=== PATIENT | female | born 1935 | race Caucasian/White ===

== ENCOUNTER 2017-03-25 10:40 | Inpatient (IN) ==
[2017-03-25] MEDS ORDERED: Dextrose Gel 15 GM PO PRN ×2 (11:29)
[2017-03-25] MEDS ORDERED: *HR* Dextrose 50 % in Water (Syg) 50 ML SYRINGE IVP PRN (11:29)
[2017-03-25] MEDS ORDERED: D5% in Water 1,000 ML IVC PRN (11:29)
[2017-03-25] MEDS: Insulin LISPRO 300 UNITS/3 ML VIAL SQ SCH ×3 (12:41→21:22)
[2017-03-25] MEDS: Cortisporin *EAR*Susp 10 ML BOTTLE BOTH EARS SCH ×3 (13:15→21:22)
[2017-03-25] MEDS: *HR* OxyCODONE/APAP 5/325 TABLET PO PRN ×2 (13:15→21:30)
[2017-03-25] MEDS: *HR* Metformin 500 MG TABLET PO SCH (17:11)
[2017-03-25] MEDS: *HR* Warfarin 2 MG TABLET PO SCH (17:12)
[2017-03-25] MEDS: *HR* Warfarin 3 MG TABLET PO SCH (17:12)
[2017-03-25] MEDS: Albuterol 2.5 MG/3 ML NEBULIZER IH SCH ×2 (19:05)
[2017-03-25] MEDS: Lisinopril 20 MG TABLET PO SCH (21:21)
[2017-03-26 06:39] LABS: Basophils % 0.7 %; Eosinophils # 0.2 K/mcL (0.0-0.6); Eosinophils % 4.2 %; Hematocrit 37.7 % (35.3-44.9); Hemoglobin 11.1 g/dL (11.5-15.4); Immature Granulocytes % 0.3 % (0-4); Lymphocytes # 0.7 K/mcL (0.6-4.6); Lymphocytes % 12.8 %; Mean Corpuscular HGB Conc 29.4 g/dL (31.6-35.5); Mean Corpuscular Hemoglobin 29.1 pg (28.0-33.3); Mean Corpuscular Volume 98.7 fL (83.0-100.0); Mean Platelet Volume 9.8 fL (9.4-12.4); Monocytes # 0.5 K/mcL (0.0-1.3); Monocytes % 8.9 %; Neutrophils # 4.2 K/mcL (1.6-8.9); Platelet Count 234 K/mcL (140-400); Red Blood Count 3.82 M/mcL (3.82-4.97); Red Cell Distribution Width 15.5 % (11.5-14.5); Segmented Neutrophils % 73.1 %
[2017-03-26 06:47] LABS: INR 1.5; Prothrombin Time 16.7 Seconds (9.4-12.1)
[2017-03-26 06:50] LABS: Activated Partial Thrombo Time 32.8 Seconds (26.0-36.0)
[2017-03-26 06:59] LABS: BUN/Creatinine Ratio 28 (6-26); Blood Urea Nitrogen 27 mg/dL (7-20); Calcium 9.4 mg/dL (8.6-10.8); Carbon Dioxide 39 mEq/L (19-29); Chloride 94 mEq/L (98-109); Glucose 127 mg/dL (70-99); Osmolality,Calculated 303 (280-300); Potassium 4.9 mEq/L (3.5-4.5); Sodium 143 mEq/L (136-145); eGFR For African Americans > 60 (> 60); eGFR For Non-African Americans 56 (> 60)
[2017-03-26] MEDS: Insulin LISPRO 300 UNITS/3 ML VIAL SQ SCH ×4 (07:28→20:29)
[2017-03-26] MEDS: (Febuxostat [Uloric] 40 MG) PO SCH (07:30)
[2017-03-26] MEDS: Bumetanide 1 MG TABLET PO SCH (08:00)
[2017-03-26] MEDS: Lisinopril 20 MG TABLET PO SCH ×2 (08:01→20:29)
[2017-03-26] MEDS: Magnesium Oxide 400 MG TABLET PO SCH (08:01)
[2017-03-26] MEDS: Diltiazem CD (24hr) 300 MG CAPSULE PO SCH (08:01)
[2017-03-26] MEDS: Metoprolol XL (24 HR) Succ 25 MG TAB.ER.24H PO SCH (08:01)
[2017-03-26] MEDS: *HR* Metformin 500 MG TABLET PO SCH ×2 (08:01→16:43)
[2017-03-26] MEDS: Cortisporin *EAR*Susp 10 ML BOTTLE BOTH EARS SCH ×4 (08:02→20:29)
[2017-03-26] MEDS: *HR* OxyCODONE/APAP 5/325 TABLET PO PRN ×2 (14:21→23:03)
[2017-03-26] MEDS: Albuterol 2.5 MG/3 ML NEBULIZER IH PRN (15:03)
[2017-03-26] MEDS: *HR* Warfarin 2 MG TABLET PO SCH (16:43)
[2017-03-26] MEDS: *HR* Warfarin 3 MG TABLET PO SCH (16:43)
[2017-03-27] MEDS: Insulin LISPRO 300 UNITS/3 ML VIAL SQ SCH ×4 (07:37→20:28)
[2017-03-27] MEDS: Albuterol 2.5 MG/3 ML NEBULIZER IH PRN ×2 (08:02→19:57)
[2017-03-27] MEDS: Metoprolol XL (24 HR) Succ 25 MG TAB.ER.24H PO SCH (08:03)
[2017-03-27] MEDS: Lisinopril 20 MG TABLET PO SCH ×2 (08:03→20:23)
[2017-03-27] MEDS: *HR* Metformin 500 MG TABLET PO SCH ×2 (08:03→16:55)
[2017-03-27] MEDS: Bumetanide 1 MG TABLET PO SCH (08:03)
[2017-03-27] MEDS: Magnesium Oxide 400 MG TABLET PO SCH (08:03)
[2017-03-27] MEDS: Diltiazem CD (24hr) 300 MG CAPSULE PO SCH (08:59)
[2017-03-27] MEDS: (Febuxostat [Uloric] 40 MG) PO SCH (09:27)
[2017-03-27] MEDS: Cortisporin *EAR*Susp 10 ML BOTTLE BOTH EARS SCH ×4 (09:53→20:22)
--- NOTE | 2017-03-27 11:26 | Internal Med Progress Note ---
Date of Encounter: 03/27/17 Time of Encounter: 11:15 - Assessment and plan (1) Congestive heart failure Current Visit: No Status: Acute Assessment and plan: March 27. Continue Zestril, Bumex, and Toprol. Qualifiers: Congestive heart failure type: unspecified congestive heart failure type Congestive heart failure chronicity: acute on chronic Qualified Code(s): I50.9 - Heart failure, unspecified (2) Hypertension Current Visit: No Status: Chronic Assessment and plan: March 27. Blood pressure shows significant fluctuation. Continue Zestril, Bumex, and Toprol Qualifiers: Hypertension type: essential hypertension Qualified Code(s): I10 - Essential (primary) hypertension (3) Edema Current Visit: No Status: Acute Assessment and plan: March 27. Continue Bumex. Recheck labs in a.m. Qualifiers: Edema type: unspecified Qualified Code(s): R60.9 - Edema, unspecified (4) Atrial fibrillation Current Visit: No Status: Chronic Assessment and plan: March 27. Continue Coumadin, diltiazem, and Toprol. Recheck labs in a.m. Qualifiers: Atrial fibrillation type: chronic Qualified Code(s): I48.2 - Chronic atrial fibrillation (5) Hypomagnesemia Current Visit: No Status: Acute Assessment and plan: March 27. Continue magnesium oxide. Recheck labs in a.m. - Subjective Interval history: March 27. She was hospitalized in [facility] acute care March 21 with dyspnea probably secondary to bronchiolitis with heart failure. She had clinical improvement and was discharged to swing bed for ongoing therapy. She has no new complaints today. - Constitutional Vitals: Temp Pulse Resp BP Pulse Ox 97.8 F 88 16 155/85 93 03/27/17 05:20 03/27/17 05:20 03/27/17 08:05 03/27/17 05:20 03/27/17 08:05 Exam: She is sitting in a chair at bedside working with a therapist. She appears in no acute distress. She has trace pitting edema of her lower legs and 1+ edema of the dorsum of the feet. I reviewed her medications and lab results. Internal Medicine: Result - Labs CBC & Chem 7: 03/26/17 05:54 03/26/17 05:54 - ABG Interpretation ABG results: PT/INR, D-dimer PT 16.7 Seconds (9.4-12.1) H 03/26/17 05:54 - VTE Documentation of Mechanical Device: Graduated compression elastic hosiery Consult Discharge Plan - Plan Referrals: Lionel Paula DO [Primary Care Provider] - 1 week
[2017-03-27] MEDS: *HR* OxyCODONE/APAP 5/325 TABLET PO PRN ×2 (16:07→22:30)
[2017-03-27] MEDS: *HR* Warfarin 2 MG TABLET PO SCH (16:55)
[2017-03-27] MEDS: *HR* Warfarin 3 MG TABLET PO SCH (16:56)
[2017-03-28] MEDS: *HR* OxyCODONE/APAP 5/325 TABLET PO PRN ×2 (05:06→20:12)
[2017-03-28 05:40] LABS: Basophils # 0.1 K/mcL (0.0-0.2); Basophils % 1.6 %; Eosinophils # 0.2 K/mcL (0.0-0.6); Hematocrit 35.5 % (35.3-44.9); Immature Granulocytes % 0.3 % (0-4); Lymphocytes # 0.7 K/mcL (0.6-4.6); Lymphocytes % 18.1 %; Mean Corpuscular Hemoglobin 29.4 pg (28.0-33.3); Mean Corpuscular Volume 94.9 fL (83.0-100.0); Mean Platelet Volume 9.5 fL (9.4-12.4); Monocytes # 0.3 K/mcL (0.0-1.3); Monocytes % 9.3 %; Neutrophils # 2.4 K/mcL (1.6-8.9); Platelet Count 219 K/mcL (140-400); Red Blood Count 3.74 M/mcL (3.82-4.97); Red Cell Distribution Width 14.9 % (11.5-14.5); Segmented Neutrophils % 64.7 %
[2017-03-28 05:42] LABS: INR 1.9; Prothrombin Time 21.1 Seconds (9.4-12.1)
[2017-03-28 05:58] LABS: BUN/Creatinine Ratio 27 (6-26); Blood Urea Nitrogen 20 mg/dL (7-20); Calcium 9.4 mg/dL (8.6-10.8); Carbon Dioxide 38 mEq/L (19-29); Chloride 93 mEq/L (98-109); Glucose 116 mg/dL (70-99); Magnesium 1.5 mg/dL (1.6-2.6); Osmolality,Calculated 300 (280-300); Potassium 4.2 mEq/L (3.5-4.5); Sodium 143 mEq/L (136-145); eGFR For African Americans > 60 (> 60); eGFR For Non-African Americans > 60 (> 60)
[2017-03-28] MEDS: Insulin LISPRO 300 UNITS/3 ML VIAL SQ SCH ×4 (07:34→23:15)
[2017-03-28] MEDS: Diltiazem CD (24hr) 300 MG CAPSULE PO SCH (09:22)
[2017-03-28] MEDS: Metoprolol XL (24 HR) Succ 25 MG TAB.ER.24H PO SCH (09:22)
[2017-03-28] MEDS: Lisinopril 20 MG TABLET PO SCH ×2 (09:22→20:10)
[2017-03-28] MEDS: *HR* Metformin 500 MG TABLET PO SCH ×2 (09:22→17:27)
[2017-03-28] MEDS: Bumetanide 1 MG TABLET PO SCH (09:23)
[2017-03-28] MEDS: Magnesium Oxide 400 MG TABLET PO SCH (09:23)
[2017-03-28] MEDS: Cortisporin *EAR*Susp 10 ML BOTTLE BOTH EARS SCH ×4 (09:25→21:00)
[2017-03-28] MEDS: (Febuxostat [Uloric] 40 MG) PO SCH (14:04)
[2017-03-28] MEDS: *HR* Warfarin 2 MG TABLET PO SCH (17:27)
[2017-03-28] MEDS: *HR* Warfarin 3 MG TABLET PO SCH (17:49)
[2017-03-29] MEDS: *HR* OxyCODONE/APAP 5/325 TABLET PO PRN (04:34)
[2017-03-29 06:50] VITALS: BP 126/67
[2017-03-29] MEDS: Insulin LISPRO 300 UNITS/3 ML VIAL SQ SCH (08:00)
[2017-03-29] MEDS: Diltiazem CD (24hr) 300 MG CAPSULE PO SCH (09:11)
[2017-03-29] MEDS: *HR* Metformin 500 MG TABLET PO SCH (09:11)
[2017-03-29] MEDS: Metoprolol XL (24 HR) Succ 25 MG TAB.ER.24H PO SCH (09:11)
[2017-03-29] MEDS: Magnesium Oxide 400 MG TABLET PO SCH (09:11)
[2017-03-29] MEDS: Lisinopril 20 MG TABLET PO SCH (09:11)
[2017-03-29] MEDS: Bumetanide 1 MG TABLET PO SCH (09:11)
[2017-03-29] MEDS: (Febuxostat [Uloric] 40 MG) PO SCH (09:13)
[2017-03-29] MEDS: Cortisporin *EAR*Susp 10 ML BOTTLE BOTH EARS SCH (09:13)
--- NOTE | 2017-03-29 10:52 | Discharge Summary ---
Date of Encounter: 03/29/17 Time of Encounter: 10:25 - Discharge Diagnosis (1) Congestive heart failure Priority: Primary Status: Acute Qualifiers: Congestive heart failure type: unspecified congestive heart failure type Congestive heart failure chronicity: acute on chronic Qualified Code(s): I50.9 - Heart failure, unspecified (2) Hypertension Priority: Secondary Status: Chronic Qualifiers: Hypertension type: essential hypertension Qualified Code(s): I10 - Essential (primary) hypertension (3) Edema Priority: Secondary Status: Acute Qualifiers: Edema type: unspecified Qualified Code(s): R60.9 - Edema, unspecified (4) Atrial fibrillation Priority: Secondary Status: Chronic Qualifiers: Atrial fibrillation type: chronic Qualified Code(s): I48.2 - Chronic atrial fibrillation (5) Hypomagnesemia Priority: Secondary Status: Acute - Discharge Medications Prescriptions: Bumetanide [Bumex] 2 mg PO DAILY #60 tablet Magnesium Oxide [Mag-Ox] 400 mg PO DAILY #10 tablet metFORMIN [Glucophage] 500 mg PO BIDWM #60 tablet Potassium Chloride 10 meq PO BID #60 tab.er.prt Home Medications: Albuterol Neb [Proventil Neb] 2.5 mg IH Q6HR 02/15/15 [History] Diltiazem CD (24hr) [Cardizem CD] 300 mg PO DAILY 02/15/15 [History] Lisinopril [Zestril] 20 mg PO BID 02/15/15 [History] Warfarin [Coumadin] 7 mg PO 1800 02/15/15 [History] Febuxostat [Uloric] 40 mg PO DAILY 10/03/16 [History] MetroNIDAZOLE [Metrocream] 45 gm TP DAILY #1 cream..g. 10/03/16 [Rx] Rahul/Poly/HC *EAR* SOLN [Cortisporin *EAR* SOLN] 4 drop BOTH EARS QID #1 solution 10/03/16 [Rx] OxyCODONE/APAP 5/325 [Percocet 5/325 MG] 1 each PO Q6HR PRN 10/03/16 [History] Metoprolol XL (24 HR) Succ [Toprol Xl] 12.5 mg PO DAILY tab.er.24h 03/25/17 [Rx ] Bumetanide [Bumex] 2 mg PO DAILY #60 tablet 03/29/17 [Rx] Magnesium Oxide [Mag-Ox] 400 mg PO DAILY #10 tablet 03/29/17 [Rx] Potassium Chloride 10 meq PO BID #60 tab.er.prt 03/29/17 [Rx] metFORMIN [Glucophage] 500 mg PO BIDWM #60 tablet 03/29/17 [Rx] Allergies/Adverse Reactions: 3 Allergy/AdvReac Type Severity Reaction Status Date / Time No Known Allergies Allergy Verified 03/21/17 14:20 Date of admission: 03/25/17 11:01 Primary care physician: Lionel Paula DO Consults: 03/25/17 11:21 Consult to Occupational Therapy [CONS] Routine Comment: Evaluate, Develop and Implement Plan of care Reason for Consult: Evaluate, Develop and Implement Plan of Care Consult to Physical Therapy [CONS] Routine Comment: Evaluate, Develop and Implement POC Reason for Consult: Evaluate, Develop and Implement Plan of care Consult to Look Out Tower Fire Watcher [CONS] Routine Reason for SW Consult: Discharge planning - Patient Status Disposition: Home Health Service Functional capacity at discharge: uses cane/walker Overall status at discharge: patient is progressing back to baseline - Discharge Instructions Follow Up With: Lionel Paula DO [Primary Care Provider] - 1 week - Diet and Activity Activity: as per physical therapy Diet: low salt diet Hospital course: Ms. Hess is a 82 year old female who was hospitalized in [facility] acute care March 21 with dyspnea probably secondary to bronchiolitis with heart failure. She had clinical improvement and was discharged to swing bed for ongoing therapy. She progressed satisfactorily in swing bed. She was continued on Bumex Toprol and Zestril and had good diuresis with decreased edema and her blood pressure remained stable. She continued Coumadin diltiazem and Toprol and her atrial fibrillation remained satisfactorily controlled. She was maintained on magnesium oxide for hypomagnesemia. This will continue for 10 days at discharge and her PCP can monitor her labs as needed. On Marchrrangementses were complete for her to be discharged home. She will follow with her PCP Dr. Paula within 1 week. - Time Spent with Patient Total time spent providing and/or coordinating discharge services: - Constitutional Vitals: Temp Pulse Resp BP Pulse Ox 98.3 F 88 17 126/67 93 03/29/17 06:39 03/29/17 06:39 03/29/17 06:39 03/29/17 06:39 03/29/17 06:39 - VTE Documentation of Mechanical Device: Graduated compression elastic hosiery
--- NOTE | 2017-03-29 11:01 | Physician Discharge Referral ---
Home Health/Hosp Referral Info Transfer to: Home Health Attending Provider: Lucio Provider in Charge Post Discharge: PCP (Nisa) - Diagnosis (1) Congestive heart failure Priority: Primary Status: Acute (2) Hypertension Priority: Secondary Status: Chronic (3) Edema Priority: Secondary Status: Acute (4) Atrial fibrillation Priority: Secondary Status: Chronic (5) Hypomagnesemia Priority: Secondary Status: Acute - Respiratory Orders Oxygen / L per min (2-4 L/m by nasal cannula as necessary to keep sat greater than 90%) Smoking Cessation: Smoking cessation has been advised. For more information, call the [place] Tobacco Quit Line at 7-944-XDSO-NOW. - Diet/Nutrition Diet/Nutrition Orders: No Added Salt (CARLO) - Activity Activity Orders: Walker - Services Needed Following services are medically necessary services: Nursing, Home Health Aide, Physical Therapy, Occupational Therapy - Transfer Medications Prescriptions: Bumetanide [Bumex] 2 mg PO DAILY #60 tablet Magnesium Oxide [Mag-Ox] 400 mg PO DAILY #10 tablet metFORMIN [Glucophage] 500 mg PO BIDWM #60 tablet Potassium Chloride 10 meq PO BID #60 tab.er.prt Home Medications: Albuterol Neb [Proventil Neb] 2.5 mg IH Q6HR 02/15/15 [History] Diltiazem CD (24hr) [Cardizem CD] 300 mg PO DAILY 02/15/15 [History] Lisinopril [Zestril] 20 mg PO BID 02/15/15 [History] Warfarin [Coumadin] 7 mg PO 1800 02/15/15 [History] Febuxostat [Uloric] 40 mg PO DAILY 10/03/16 [History] MetroNIDAZOLE [Metrocream] 45 gm TP DAILY #1 cream..g. 10/03/16 [Rx] Rahul/Poly/HC *EAR* SOLN [Cortisporin *EAR* SOLN] 4 drop BOTH EARS QID #1 solution 10/03/16 [Rx] OxyCODONE/APAP 5/325 [Percocet 5/325 MG] 1 each PO Q6HR PRN 10/03/16 [History] Metoprolol XL (24 HR) Succ [Toprol Xl] 12.5 mg PO DAILY tab.er.24h 03/25/17 [Rx ] Bumetanide [Bumex] 2 mg PO DAILY #60 tablet 03/29/17 [Rx] Magnesium Oxide [Mag-Ox] 400 mg PO DAILY #10 tablet 03/29/17 [Rx] Potassium Chloride 10 meq PO BID #60 tab.er.prt 03/29/17 [Rx] metFORMIN [Glucophage] 500 mg PO BIDWM #60 tablet 03/29/17 [Rx] Allergies/Adverse Reactions: 3 Allergy/AdvReac Type Severity Reaction Status Date / Time No Known Allergies Allergy Verified 03/21/17 14:20 Certification: Further, I certify that my clinical findings support that this patient is homebound (i.e. absences from home require considerable and taxing effort and are for medical reasons or mandaen services or infrequently or short duration when for other reasons) because: Homebound Reason: Leaving home requires considerable and taxing effort due to condition (Extreme difficulty walking secondary to obesity and heart failure) Attestation: My signature below is to certify that this patient is under my care and that I, or nurse practitioner, or a physician's mailing machine assistant working with me, has a face-to -face encounter with this patient.
== END 2017-03-29 11:24 | disposition home health service (06) | DRG 292 ==
LOC: INPPIK 11:01
PROVIDERS: ADMIT Internal Medicine; ATTEND Internal Medicine

== ENCOUNTER 2018-04-10 12:10 | Inpatient (IN) ==
--- NOTE | 2018-04-10 12:37 | Emergency Department Note ---
Disposition Clinical Impression: Acute exacerbation of chronic obstructive airways disease, Congestive heart failure Disposition: Admitted As Inpatient Condition: Fair Referrals: Antonette Rhodes CNP [Primary Care Provider] - Forms: ED Satisfaction Letter Time of Disposition: 17:47 SOB HPI - General Chief Complaint: ED Shortness of Breath/Dyspnea Stated Complaint: shortness of breath Time Seen by Provider: 04/10/18 12:11 Source: patient Mode of arrival: ambulatory Limitations: no limitations Nursing Notes Reviewed: Yes Vital Signs Reviewed: Yes - History of Present Illness 83-year-old female with a past which was recommended ice elevate to the point where she is not able only round she states though that she has not had her diuretic past lays she denies any blurred vision double vision loss vision. Patient states that she's had approximately a 10 pound weight gain over the past couple days she denies any diarrhea melena hematochezia since she's had increasing swelling and edema she denies any nausea any rashes lesions denies any fever chills joint aches all systems reviewed and are otherwise negative Pt Subjective Complaint: shortness of breath Onset (ago): day(s) Severity: moderate Consistency/Duration: constant, gradually worsening Improves with: nothing Worsens with: exertion Known history of: COPD, congestive heart failure Associated symptoms: Reports: cough, wheezing, sputum production, lower extremity pain. Denies: chest pain, pain with inspiration, fever, orthopnea, polyuria, polydipsia, parasthesias, palpitations, hemoptysis, diaphoresis, nausea/vomiting, syncope, abdominal pain, rash, sense of impending doom Treatment prior to arrival: oxygen Cough present: No Sputum production: No - Related Data Home Medications Medication Instructions Recorded Confirmed Albuterol Neb [Proventil Neb] 2.5 mg IH Q6HR 02/15/15 01/03/18 Diltiazem CD (24hr) [Cardizem CD] 300 mg PO DAILY 02/15/15 01/03/18 Lisinopril [Zestril] 20 mg PO BID 02/15/15 01/03/18 Febuxostat [Uloric] 40 mg PO DAILY 10/03/16 01/03/18 Loratadine [Allergy Relief] 10 mg PO DAILY 06/22/17 01/03/18 Tizanidine HCl [Zanaflex] 4 mg PO TID 06/22/17 01/03/18 Tramadol HCl [Ultram] 50 mg PO QID PRN 06/22/17 01/03/18 Apixaban [Eliquis] 5 mg PO BID 12/08/17 01/03/18 Bumetanide [Bumex] 1 mg PO DAILY 12/08/17 01/03/18 Previous Rx's Medication Instructions Recorded metFORMIN [Glucophage] 500 mg PO BIDWM #60 tablet 03/29/17 Allergies Allergy/AdvReac Type Severity Reaction Status Date / Time No Known Allergies Allergy Verified 01/03/18 15:30 All systems ED: reviewed and negative except as stated. Review of Systems: As Per HPI Constitutional: Denies: fever, chills Eyes: Denies: eye pain, eye discharge ENT ED: Denies: ear pain, throat pain Cardiovascular: Reports: dyspnea on exertion. Denies: chest pain, palpitations Respiratory: Reports: dyspnea, wheezes. Denies: cough Gastrointestinal: Denies: abdominal pain, nausea, vomiting Genitourinary: Denies: urgency, dysuria, frequency Musculoskeletal: Denies: back pain, neck pain Integumentary: Denies: rash, abrasion, lesions Neurological: Denies: headache Psychiatric: Denies: anxiety Endocrine: Denies: fatigue Past Medical History - Past Medical History Attestation: Yes The following information was validated with the patient. Source: patient, old records reviewed, nursing notes reviewed Medical history: Reports: arthritis, atrial fibrillation, CHF, COPD, diabetes, hypertension, other Surgical history: Reports: hysterectomy Psychiatric history: Reports: no psych history TAN ROOM SUPERVISOR history: Reports: no TAN ROOM SUPERVISOR history - Social History Smoking Status: Never smoker Smokeless Tobacco Status: No Alcohol use: Reports: none Drug use: Reports: none Physical Exam - General Limitations: no limitations General appearance: alert, in no apparent distress, anxious, obese - Head Head exam: atraumatic, normocephalic, normal inspection - Eye Eye exam: Present: normal appearance, PERRL, EOMI - ENT ENT exam: normal exam, normal oropharynx, mucous membranes moist, TM's normal bilaterally, normal external ear exam - Neck Neck exam: Present: normal inspection, full ROM, trachea midline - Chest Chest inspection: Present: normal inspection, symmetric chest wall rise - Respiratory Respiratory exam: Present: prolonged expiratory phase, other (Crackles) - Cardiovascular Cardiovascular exam: Present: irregular rhythm, normal heart sounds - Abdominal Exam Abdominal exam: Present: soft, Non-Tender, normal bowel sounds. Absent: mass, pulsatile mass - Extremities Exam Extremities exam: Present: normal inspection, full ROM, normal capillary refill, pedal edema. Absent: tenderness, joint swelling, calf tenderness - Expanded Lower Extremity Exam Foot/toe exam: Present: normal inspection Neurovascular/Tendon exam: Present: normal capillary refill, normal fine/light touch Gait: observed and normal - Back Exam Back exam: Present: normal inspection, full ROM. Absent: muscle spasm - Neurological Exam Neurological exam: Present: alert, oriented X3, CN II-XII intact - Psychiatric Psychiatric exam: Present: normal affect, normal mood - Skin Skin exam: Present: warm, dry, intact, normal color Course Course Narrative: A she was seen and examined laboratory data was done we will do PE study because of slight elevation of her d-dimer but this may be age-related and her overall health condition causing a false elevation in the d-dimer but after repeated IV access attempts they were unable to obtain in excess patient does not want to be stuck anymore patient though is resting comfortably she is received aerosol treatments and she is also received diuretics which are seem to be doing much better patient sats holding in the 90% I spoke with Dr. Valdes will admit her for observation transferred to [facility] Vital Signs Temperature 98.7 F 04/10/18 12:11 Pulse Rate 94 04/10/18 12:11 Respiratory Rate 20 04/10/18 12:11 Blood Pressure 149/87 04/10/18 12:11 O2 Sat by Pulse Oximetry 84 04/10/18 12:11 Temperature 98.7 F 04/10/18 12:11 Pulse Rate 80 04/10/18 17:46 Respiratory Rate 20 04/10/18 17:46 Blood Pressure 150/74 04/10/18 17:46 O2 Sat by Pulse Oximetry 87 04/10/18 17:46 Oxygen Delivery Oxygen Delivery Nasal Cannula Shortness of Breath/Dyspnea - Differential Diagnosis Likely: acute exacerbation of chronic obstructive airways disease, congestive heart failure, pneumonia - Medical Records Medical records reviewed: Yes I reviewed the patient's medical records. - Lab Data Lab results reviewed: Yes I reviewed the patient's lab results. Result diagrams: 04/10/18 12:30 04/10/18 12:30 Lab Results 04/10/18 04/10/18 04/10/18 Range/Units 12:30 12:30 12:30 WBC 6.0 (4.3-11.1) K/mcL RBC 4.01 (3.82-4.97) M/mcL Hgb 11.5 (11.5-15.4) g/dL Hct 38.7 (35.3-44.9) % MCV 96.5 (83.0-100.0) fL MCH 28.7 (28.0-33.3) pg MCHC 29.7 L (31.6-35.5) g/dL RDW 17.8 H (11.5-14.5) % Plt Count 219 (140-400) K/mcL MPV 9.8 (9.4-12.4) fL Immature Gran % 0.3 (0-4) % Seg Neutrophils % 76.8 % Lymphocytes % 12.9 % Monocytes % 6.2 % Eosinophils % 2.8 % Basophils % 1.0 % Neutrophils # 4.6 (1.6-8.9) K/mcL Lymphocytes # 0.8 (0.6-4.6) K/mcL Monocytes # 0.4 (0.0-1.3) K/mcL Eosinophils # 0.2 (0.0-0.6) K/mcL Basophils # 0.1 (0.0-0.2) K/mcL Nucleated RBCs/100 WBC 0.3 H (0) /100 WBC PT 13.6 H (9.4-12.1) Seconds INR 1.2 APTT 36.0 (26.0-36.0) Seconds D-Dimer 1465 H (0-500) ng/mLFEU Sample Site ABG pH (7.32-7.45) pH Units ABG pCO2 (35-45) mmHg ABG pO2 (85-104) mmHg ABG HCO3 (21-27) mEq/L ABG Total CO2 (20-26) mEq/L ABG O2 Saturation (95-98) % ABG Base Excess (-2 to 3) mEq/L Sergio Test O2 Delivery Device Inspired O2 (1-15=lpm mg26-918=%) Sodium 139 (136-145) mEq/L Potassium 4.4 (3.5-5.1) mEq/L Chloride 98 (98-107) mEq/L Carbon Dioxide 34 H (23-29) mEq/L BUN 25 H (8-23) mg/dL Creatinine 1.05 (0.60-1.20) mg/dL Est GFR ( Amer) > 60 (> 60) Est GFR (Non-Af Amer) 50 L (> 60) BUN/Creatinine Ratio 24 (6-26) Glucose 198 H (70-105) mg/dL Calculated Osmolality 298 (280-300) Calcium 8.9 (8.6-10.3) mg/dL Total Bilirubin 0.6 (0.3-1.0) mg/dL AST 14 (13-39) Units/L ALT 13 (7-52) Units/L Alkaline Phosphatase 66 (34-104) Units/L Troponin I (< 0.04) ng/mL B-Natriuretic Peptide (Less than 100) pg/mL Serum Total Protein 7.5 (6.4-8.9) g/dL Albumin 3.6 (3.5-5.7) g/dL Globulin 3.9 H (2.4-3.5) g/dL Albumin/Globulin Ratio 0.9 L (1.1-2.2) Urine Color (Yellow) Urine Clarity (Clear) Urine pH (5.0-8.0) pH Units Ur Specific Morse (1.010-1.025) Urine Protein (Neg-Trace) mg/dL Urine Glucose (UA) (Normal) mg/dL Urine Ketones (Negative) mg/dL Urine Blood (Negative) Urine Nitrite (Negative) Urine Bilirubin (Negative) Urine Urobilinogen (Normal) mg/dL Ur Leukocyte Esterase (Negative) Urine Microscopic RBC (0-3) per hpf Urine Microscopic WBC (0-3) per hpf Ur Squamous Epith Cells (None-Few) per lpf Urine Bacteria (None-Few) per hpf Ur Culture Indicated? (NO) 04/10/18 04/10/18 04/10/18 Range/Units 12:30 12:30 13:57 WBC (4.3-11.1) K/mcL RBC (3.82-4.97) M/mcL Hgb (11.5-15.4) g/dL Hct (35.3-44.9) % MCV (83.0-100.0) fL MCH (28.0-33.3) pg MCHC (31.6-35.5) g/dL RDW (11.5-14.5) % Plt Count (140-400) K/mcL MPV (9.4-12.4) fL Immature Gran % (0-4) % Seg Neutrophils % % Lymphocytes % % Monocytes % % Eosinophils % % Basophils % % Neutrophils # (1.6-8.9) K/mcL Lymphocytes # (0.6-4.6) K/mcL Monocytes # (0.0-1.3) K/mcL Eosinophils # (0.0-0.6) K/mcL Basophils # (0.0-0.2) K/mcL Nucleated RBCs/100 WBC (0) /100 WBC PT (9.4-12.1) Seconds INR APTT (26.0-36.0) Seconds D-Dimer (0-500) ng/mLFEU Sample Site ABG pH (7.32-7.45) pH Units ABG pCO2 (35-45) mmHg ABG pO2 (85-104) mmHg ABG HCO3 (21-27) mEq/L ABG Total CO2 (20-26) mEq/L ABG O2 Saturation (95-98) % ABG Base Excess (-2 to 3) mEq/L Sergio Test O2 Delivery Device Inspired O2 (1-15=lpm aq02-576=%) Sodium (136-145) mEq/L Potassium (3.5-5.1) mEq/L Chloride (98-107) mEq/L Carbon Dioxide (23-29) mEq/L BUN (8-23) mg/dL Creatinine (0.60-1.20) mg/dL Est GFR ( Amer) (> 60) Est GFR (Non-Af Amer) (> 60) BUN/Creatinine Ratio (6-26) Glucose (70-105) mg/dL Calculated Osmolality (280-300) Calcium (8.6-10.3) mg/dL Total Bilirubin (0.3-1.0) mg/dL AST (13-39) Units/L ALT (7-52) Units/L Alkaline Phosphatase (34-104) Units/L Troponin I < 0.03 (< 0.04) ng/mL B-Natriuretic Peptide 206 H (Less than 100) pg/mL Serum Total Protein (6.4-8.9) g/dL Albumin (3.5-5.7) g/dL Globulin (2.4-3.5) g/dL Albumin/Globulin Ratio (1.1-2.2) Urine Color Yellow (Yellow) Urine Clarity Clear (Clear) Urine pH 5.5 (5.0-8.0) pH Units Ur Specific Morse 1.015 (1.010-1.025) Urine Protein Trace (Neg-Trace) mg/dL Urine Glucose (UA) Normal (Normal) mg/dL Urine Ketones Negative (Negative) mg/dL Urine Blood Trace-intact H (Negative) Urine Nitrite Negative (Negative) Urine Bilirubin Negative (Negative) Urine Urobilinogen Normal (Normal) mg/dL Ur Leukocyte Esterase Negative (Negative) Urine Microscopic RBC 0-3 (0-3) per hpf Urine Microscopic WBC 0-3 (0-3) per hpf Ur Squamous Epith Cells Few (None-Few) per lpf Urine Bacteria Few (None-Few) per hpf Ur Culture Indicated? NO (NO) 04/10/18 Range/Units 16:19 WBC (4.3-11.1) K/mcL RBC (3.82-4.97) M/mcL Hgb (11.5-15.4) g/dL Hct (35.3-44.9) % MCV (83.0-100.0) fL MCH (28.0-33.3) pg MCHC (31.6-35.5) g/dL RDW (11.5-14.5) % Plt Count (140-400) K/mcL MPV (9.4-12.4) fL Immature Gran % (0-4) % Seg Neutrophils % % Lymphocytes % % Monocytes % % Eosinophils % % Basophils % % Neutrophils # (1.6-8.9) K/mcL Lymphocytes # (0.6-4.6) K/mcL Monocytes # (0.0-1.3) K/mcL Eosinophils # (0.0-0.6) K/mcL Basophils # (0.0-0.2) K/mcL Nucleated RBCs/100 WBC (0) /100 WBC PT (9.4-12.1) Seconds INR APTT (26.0-36.0) Seconds D-Dimer (0-500) ng/mLFEU Sample Site R Radial ABG pH 7.37 (7.32-7.45) pH Units ABG pCO2 64 H (35-45) mmHg ABG pO2 56 L (85-104) mmHg ABG HCO3 37 H (21-27) mEq/L ABG Total CO2 39 H (20-26) mEq/L ABG O2 Saturation 87 L (95-98) % ABG Base Excess 9 H (-2 to 3) mEq/L Sergio Test Positive O2 Delivery Device Oxy Mask Inspired O2 5.0 (1-15=lpm nu58-214=%) Sodium (136-145) mEq/L Potassium (3.5-5.1) mEq/L Chloride (98-107) mEq/L Carbon Dioxide (23-29) mEq/L BUN (8-23) mg/dL Creatinine (0.60-1.20) mg/dL Est GFR ( Amer) (> 60) Est GFR (Non-Af Amer) (> 60) BUN/Creatinine Ratio (6-26) Glucose (70-105) mg/dL Calculated Osmolality (280-300) Calcium (8.6-10.3) mg/dL Total Bilirubin (0.3-1.0) mg/dL AST (13-39) Units/L ALT (7-52) Units/L Alkaline Phosphatase (34-104) Units/L Troponin I (< 0.04) ng/mL B-Natriuretic Peptide (Less than 100) pg/mL Serum Total Protein (6.4-8.9) g/dL Albumin (3.5-5.7) g/dL Globulin (2.4-3.5) g/dL Albumin/Globulin Ratio (1.1-2.2) Urine Color (Yellow) Urine Clarity (Clear) Urine pH (5.0-8.0) pH Units Ur Specific Morse (1.010-1.025) Urine Protein (Neg-Trace) mg/dL Urine Glucose (UA) (Normal) mg/dL Urine Ketones (Negative) mg/dL Urine Blood (Negative) Urine Nitrite (Negative) Urine Bilirubin (Negative) Urine Urobilinogen (Normal) mg/dL Ur Leukocyte Esterase (Negative) Urine Microscopic RBC (0-3) per hpf Urine Microscopic WBC (0-3) per hpf Ur Squamous Epith Cells (None-Few) per lpf Urine Bacteria (None-Few) per hpf Ur Culture Indicated? (NO) - Radiology Data Radiology results reviewed: Yes I reviewed the patient's radiology results. ITS Impressions Chest X-Ray 04/10/18 12:37 IMPRESSION: Cardiomegaly with mild CHF. D/ / 04/10/2018 13:12:04 Johnie Snell MD / jerrica Interpreting Provider: Johnie Snell MD - EKG Data EKG attestation: Yes I reviewed and interpreted this EKG. EKG results narrative: Atrial fib rate 94 QRS 75 QT 323 axis LXXIX-controlled response Critical Care Time Critical Care Time: No
[2018-04-10 12:48] LABS: Basophils # 0.1 K/mcL (0.0-0.2); Eosinophils # 0.2 K/mcL (0.0-0.6); Eosinophils % 2.8 %; Hematocrit 38.7 % (35.3-44.9); Hemoglobin 11.5 g/dL (11.5-15.4); Immature Granulocytes % 0.3 % (0-4); Lymphocytes # 0.8 K/mcL (0.6-4.6); Lymphocytes % 12.9 %; Mean Corpuscular HGB Conc 29.7 g/dL (31.6-35.5); Mean Corpuscular Hemoglobin 28.7 pg (28.0-33.3); Mean Corpuscular Volume 96.5 fL (83.0-100.0); Mean Platelet Volume 9.8 fL (9.4-12.4); Monocytes # 0.4 K/mcL (0.0-1.3); Monocytes % 6.2 %; Neutrophils # 4.6 K/mcL (1.6-8.9); Nucleated Red Blood Cells 0.3 /100 WBC (0); Platelet Count 219 K/mcL (140-400); Red Blood Count 4.01 M/mcL (3.82-4.97); Red Cell Distribution Width 17.8 % (11.5-14.5); Segmented Neutrophils % 76.8 %
[2018-04-10] MEDS ORDERED: Ipratropium/Albuterol Neb 3 ML IH ONE (12:52)
[2018-04-10] MEDS ORDERED: Bumetanide 1 MG/4 ML VIAL IVP ONE (12:52)
[2018-04-10 13:05] LABS: INR 1.2; Prothrombin Time 13.6 Seconds (9.4-12.1)
[2018-04-10 13:11] LABS: Alanine Aminotransferase 13 Units/L (7-52); Albumin 3.6 g/dL (3.5-5.7); Albumin/Globulin Ratio 0.9 (1.1-2.2); Alkaline Phosphatase 66 Units/L (34-104); Aspartate Amino Transferase 14 Units/L (13-39); BUN/Creatinine Ratio 24 (6-26); Bilirubin,Total 0.6 mg/dL (0.3-1.0); Blood Urea Nitrogen 25 mg/dL (8-23); Calcium 8.9 mg/dL (8.6-10.3); Carbon Dioxide 34 mEq/L (23-29); Chloride 98 mEq/L (98-107); Globulin 3.9 g/dL (2.4-3.5); Glucose 198 mg/dL (70-105); Osmolality,Calculated 298 (280-300); Potassium 4.4 mEq/L (3.5-5.1); Sodium 139 mEq/L (136-145); Total Protein 7.5 g/dL (6.4-8.9); eGFR For Non-African Americans 50 (> 60)
[2018-04-10] MEDS ORDERED: Isovue-370 500 ML INFUS..BTL IV ONE ×2 (13:20→18:38)
[2018-04-10 14:11] LABS: Bilirubin,Urine Negative (Negative); Blood,Urine Trace-intact (Negative); Clarity,Urine Clear (Clear); Color,Urine Yellow (Yellow); Glucose,Urine (UA) Normal (Normal); Ketones,Urine Negative (Negative); Leukocyte Esterase,Urine Negative (Negative); Nitrite,Urine Negative (Negative); PH,Urine 5.5 pH Units (5.0-8.0); Protein,Urine Trace mg/dL (Neg-Trace); Specific Gravity,Urine 1.015 (1.010-1.025); Urobilinogen,Urine Normal (Normal)
[2018-04-10 14:24] LABS: RBC,Urine 0-3 per hpf (0-3); WBC,Urine 0-3 per hpf (0-3)
[2018-04-10 14:25] LABS: Bacteria,Urine Few per hpf (None-Few); Squamous Epithelial Cell,Urine Few per lpf (None-Few)
[2018-04-10 16:22] LABS: ABG Base Excess 9 mEq/L (-2 to 3); ABG HCO3 37 mEq/L (21-27); ABG Oxygen Saturation 87 % (95-98); ABG PCO2 64 mmHg (35-45); ABG PH 7.37 pH Units (7.32-7.45); ABG PO2 56 mmHg (85-104); ABG TCO2 39 mEq/L (20-26)
--- NOTE | 2018-04-10 17:05 | Electrocardiograph Report ---
[place] [id number] Test Date: 2018-04-10 Pat Name: Maren Hess Department: EDP-14 Room: Gender: Importer Exporter: : 1935 Requested By: Annalise Wilkes Order Number: [id number] Reading MD: Indy Felder Measurements Intervals [place] Rate: 94 P: [place]: QRS: 79 QRSD: 75 T: 39 QT: 323 QTc: 439 Interpretive Statements Atrial fibrillation Low voltage, precordial leads Electronically Signed On 04-10-2018 17:04:09 EST by Indy Felder
[2018-04-10] MEDS ORDERED: Naloxone 0.4 MG/ML INJ IVP PRN (18:38)
[2018-04-10] MEDS: Bumetanide 1 MG/4 ML VIAL IVP SCH (20:13)
[2018-04-10] MEDS: Apixaban 5 MG TABLET PO SCH ×2 (21:54→22:00)
[2018-04-10] MEDS: Lisinopril 20 MG TABLET PO SCH (21:55)
[2018-04-10] MEDS: tiZANidine 4 MG TABLET PO SCH (21:55)
[2018-04-10] MEDS: Albuterol 2.5 MG/3 ML NEBULIZER IH SCH (22:31)
[2018-04-11] MEDS: Albuterol 2.5 MG/3 ML NEBULIZER IH SCH ×4 (04:59→22:18)
[2018-04-11 06:56] LABS: Basophils % 0.5 %; Eosinophils # 0.2 K/mcL (0.0-0.6); Eosinophils % 2.7 %; Hematocrit 36.9 % (35.3-44.9); Hemoglobin 10.9 g/dL (11.5-15.4); Immature Granulocytes % 0.1 % (0-4); Lymphocytes # 0.8 K/mcL (0.6-4.6); Lymphocytes % 10.7 %; Mean Corpuscular HGB Conc 29.5 g/dL (31.6-35.5); Mean Corpuscular Hemoglobin 28.6 pg (28.0-33.3); Mean Corpuscular Volume 96.9 fL (83.0-100.0); Mean Platelet Volume 9.5 fL (9.4-12.4); Monocytes # 0.4 K/mcL (0.0-1.3); Monocytes % 5.8 %; Neutrophils # 5.8 K/mcL (1.6-8.9); Platelet Count 189 K/mcL (140-400); Red Blood Count 3.81 M/mcL (3.82-4.97); Red Cell Distribution Width 17.9 % (11.5-14.5); Segmented Neutrophils % 80.2 %
[2018-04-11 07:06] LABS: INR 1.2; Prothrombin Time 13.7 Seconds (9.4-12.1)
[2018-04-11 07:17] LABS: BUN/Creatinine Ratio 22 (6-26); Blood Urea Nitrogen 20 mg/dL (8-23); Calcium 8.7 mg/dL (8.6-10.3); Carbon Dioxide 36 mEq/L (23-29); Chloride 97 mEq/L (98-107); Glucose 182 mg/dL (70-105); Osmolality,Calculated 295 (280-300); Potassium 4.4 mEq/L (3.5-5.1); Sodium 139 mEq/L (136-145); eGFR For Non-African Americans > 60 (> 60)
[2018-04-11] MEDS ORDERED: Loratadine 10 MG TABLET PO SCH (09:00)
[2018-04-11] MEDS ORDERED: Diltiazem CD (24hr) 300 MG CAPSULE PO SCH (09:00)
[2018-04-11] MEDS: Lisinopril 20 MG TABLET PO SCH ×2 (09:25→21:10)
[2018-04-11] MEDS: tiZANidine 4 MG TABLET PO SCH ×3 (09:25→21:09)
[2018-04-11] MEDS: Bumetanide 1 MG/4 ML VIAL IVP SCH ×2 (09:25→17:37)
[2018-04-11] MEDS: *HR* Metformin 500 MG TABLET PO SCH ×2 (09:26→17:37)
[2018-04-11] MEDS: Apixaban 5 MG TABLET PO SCH (09:27)
[2018-04-11] MEDS: (Febuxostat [Uloric] 40 MG) PO SCH (09:28)
--- NOTE | 2018-04-11 11:30 | Internal Med History&Physical ---
Date of Encounter: 04/11/18 Time of Encounter: 10:55 Assessment and Plan (1) Congestive heart failure Current visit: Yes Status: Acute Continue lisinopril. IV diuretics have been ordered. She will be started on Imdur. Cardizem will be held and Toprol-XL will be started if blood pressure permits. Qualifiers: Heart failure type: diastolic Heart failure chronicity: acute on chronic Qualified Code(s): I50.33 - Acute on chronic diastolic (congestive) heart failure (2) Low vitamin D level Current visit: No Status: Chronic Vitamin D level was 14 on 01/30/2017. Recheck in a.m. (3) DM type 2 (diabetes mellitus, type 2) Current visit: No Status: Chronic Hemoglobin A1c was 8.5% on 01/16/2018. Continue Glucophage and do Accu-Cheks with SSI. Qualifiers: Diabetes mellitus terminal carman insulin use: without fpc use Diabetes mellitus complication status: without complication Qualified Code(s): E11.9 - Type 2 diabetes mellitus without complications (4) Atrial fibrillation Current visit: No Status: Chronic She discontinued Eliquis in February when she experienced bright red blood per rectum. She has not told her PCP about discontinuing the Eliquis. She does not want to restart it but is willing to take Coumadin that she was on prior to Eliquis. Cardizem will be discontinued because of borderline hypotension. Lanoxin can be used if RVR develops. Toprol-XL can be started if blood pressure permits. Qualifiers: Atrial fibrillation type: chronic Qualified Code(s): I48.2 - Chronic atrial fibrillation (5) Acute exacerbation of chronic obstructive airways disease Current visit: Yes Status: Acute Continue albuterol nebs as needed. (6) Gout Current visit: No Status: Chronic Uric acid level was 4.6 on 02/16/2018. Continue Uloric Qualifiers: Gout site: unspecified site Gout etiology: unspecified cause Chronicity: chronic Presence of tophus: without tophus Qualified Code(s): M1A.9XX0 - Chronic gout, unspecified, without tophus (tophi) (7) Anemia Current visit: Yes Status: Acute Hemoglobin has decreased to 10.9 today. Recheck labs including anemia testing in a.m. Qualifiers: Anemia type: unspecified type Qualified Code(s): D64.9 - Anemia, unspecified (8) Hypomagnesemia Current visit: No Status: Acute Magnesium level was 1.5 on 03/28/2017. Recheck in a.m. Internal Medicine - H&P: HPI Chief complaint: Dyspnea Admitted From: Emergency Dept Plans for Post Hospital Care: Home History of present illness: Ms. Hess is a 83 year old female who came to emergency room complaining of increased dyspnea for approximately 5 days. She reports feeling chilled at home but denies fever. She had no significant cough or pain in her chest or abdomen. She was evaluated in emergency room and was felt to have exacerbation of COPD and CHF. She was admitted to [facility] floor for ongoing care needs. She denies any pain at this time. She states her dyspnea has improved and she feels near baseline. Her cardiovascular history is significant for hypertension. She had an echocardiogram 07/06/2016 which showed LVEF of 60-65% with normal LV size and systolic function. There was indeterminate LV diastolic function due to atrial fibrillation. There was mild to moderate tricuspid regurgitation. LAE was noted at 4.60 cm. She denies IL DVT or pulmonary embolus. Past Med Surg Social Fam HX - Past Medical History Medical history: arthritis, atrial fibrillation, CHF, COPD, diabetes, hypertension, other Additional medical history: Bronchitis Psychiatric history: no psych history - Past Surgical History Surgical History: hysterectomy Additional surgical history: Laser SX Bilateral knees - Social History Smoking Status: Never smoker Smokeless Tobacco Status: No Alcohol use: none Drug use: none - Family History Father Adopted: No Living Status: Hx Family Cardiac Disorders: Yes Internal Medicine - H&P: Meds Albuterol Neb [Proventil Neb] 2.5 mg IH Q6HR 02/15/15 [History] Diltiazem CD (24hr) [Cardizem CD] 300 mg PO DAILY 02/15/15 [History] Lisinopril [Zestril] 20 mg PO BID 02/15/15 [History] Febuxostat [Uloric] 40 mg PO DAILY 10/03/16 [History] metFORMIN [Glucophage] 500 mg PO BIDWM #60 tablet 03/29/17 [Rx] Loratadine [Allergy Relief] 10 mg PO DAILY 06/22/17 [History] Tizanidine HCl [Zanaflex] 4 mg PO TID 06/22/17 [History] Tramadol HCl [Ultram] 50 mg PO QID PRN 06/22/17 [History] Apixaban [Eliquis] 5 mg PO BID 12/08/17 [History] Bumetanide [Bumex] 1 mg PO DAILY 12/08/17 [History] Allergy/AdvReac Type Severity Reaction Status Date / Time No Known Allergies Allergy Verified 01/03/18 15:30 All Systems PM: A 10-system review of systems was performed and is negative for pertinent findings except as documented above in the HPI. Review of systems: Review of systems from her March 2017 [facility] hospitalization were reviewed and revised as below. Gen.: Her weight has minimally changed from 137.711 kg on 12/09/2015 to 134.292 kg now Cardiovascular: As per history of present illness Respiratory: She is a lifelong nonsmoker but has a diagnosis of COPD and wears oxygen at home 29/10. She gets dyspneic on exertion. GI: She denies disorders of her liver gallbladder or exocrine pancreas : She denies hematuria dysuria or kidney stones Neurologic: She denies large distribution strokes or seizures Endocrine: She was diagnosed with DM 2 approximately 2013. She denies thyroid disease or hyperlipidemia Hematology/oncology: She denies blood disorders cancers or anemia Psychiatric: She has diagnoses of anxiety and depression. [place] skeletal: She has DJD and history of gout. She denies other bone joint or muscle disorders. Vitamin D level was low at 14 on 01/30/2017. - Constitutional Vitals: Temp Pulse Resp BP Pulse Ox 97.8 F 79 14 81/48 89 04/11/18 10:00 04/11/18 10:00 04/11/18 10:06 04/11/18 10:00 04/11/18 10:06 Exam: Gen.: She is a morbidly obese female lying in bed who appears dyspneic at rest HEENT: Head is atraumatic and normocephalic. Eyes: EOMI. There is no scleral icterus. Mouth: Mucosa is moist. Neck: Supple and nontender. There is no thyromegaly or adenopathy noted. Heart: Irregularly irregular without murmurs or gallops. Tones are soft and difficult to hear. Lungs: She has diminished breath sounds diffusely. No wheezes or crackles are heard. Abdomen: Soft and nontender. No masses or guarding are noted. Extremities: There is trace to 1+ edema of the dorsum of feet and lower anterior shins bilaterally. She has DJD changes of her hands. Her feet are warm to touch. Neurologic: Mental status: She is talkative and seems to be a reliable historian. Cranial nerves: Smile is symmetric. Forehead wrinkles bilaterally. Tongue protrudes midline. EOMI. Motor: There is no pronator drift. Cerebellar: Finger to nose is intact bilaterally. Skin: Warm and dry Internal Med - H&P Results - Labs CBC & Chem 7: 04/11/18 06:48 04/11/18 06:48 Labs: Short CBC 04/10/18 04/11/18 Range/Units 12:30 06:48 WBC 6.0 7.3 (4.3-11.1) K/mcL Hgb 11.5 10.9 L (11.5-15.4) g/dL Hct 38.7 36.9 (35.3-44.9) % Plt Count 219 189 (140-400) K/mcL Neutrophils # 4.6 5.8 (1.6-8.9) K/mcL BMP 04/10/18 04/11/18 12:30 06:48 Sodium 139 139 Potassium 4.4 4.4 Chloride 98 97 L Carbon Dioxide 34 H 36 H BUN 25 H 20 Creatinine 1.05 0.89 Glucose 198 H 182 H Calcium 8.9 8.7 Cardiac Enzymes 04/10/18 04/10/18 04/11/18 Range/Units 12:30 19:07 00:14 Troponin I < 0.03 < 0.03 < 0.03 (< 0.04) ng/mL 04/11/18 Range/Units 06:48 Troponin I < 0.03 (< 0.04) ng/mL Liver Function 04/10/18 Range/Units 12:30 Total Bilirubin 0.6 (0.3-1.0) mg/dL AST 14 (13-39) Units/L ALT 13 (7-52) Units/L Alkaline Phosphatase 66 (34-104) Units/L Albumin 3.6 (3.5-5.7) g/dL Urine 04/10/18 Range/Units 13:57 Urine Color Yellow (Yellow) Urine Clarity Clear (Clear) Urine pH 5.5 (5.0-8.0) pH Units Ur Specific [place] 1.015 (1.010-1.025) Urine Protein Trace (Neg-Trace) mg/dL Urine Glucose (UA) Normal (Normal) mg/dL - ABG Interpretation ABG results: 04/10/18 16:19 ABG pH 7.37 ABG pCO2 64 H ABG pO2 56 L ABG HCO3 37 H ABG Total CO2 39 H ABG O2 Saturation 87 L ABG Base Excess 9 H - Impressions ITS Impressions Chest X-Ray 04/10/18 12:37 IMPRESSION: Cardiomegaly with mild CHF. D/ / 04/10/2018 13:12:04 Johnie Snell MD / jerrica Interpreting Provider: Johnie Snell MD
[2018-04-11] MEDS: Isosorbide MONOnitrate (24 HR) 30 MG TAB.ER.24H PO SCH (12:35)
[2018-04-11] MEDS: traMADol 50 MG TABLET PO PRN (15:19)
[2018-04-11] MEDS ORDERED: *HR* Warfarin 5 MG TABLET PO SCH (18:00)
[2018-04-12] MEDS: Albuterol 2.5 MG/3 ML NEBULIZER IH SCH ×3 (03:50→15:32)
[2018-04-12 06:22] VITALS: BP 113/63
[2018-04-12 06:57] LABS: Basophils % 0.6 %; Eosinophils # 0.2 K/mcL (0.0-0.6); Hemoglobin 10.8 g/dL (11.5-15.4); Immature Granulocytes % 0.3 % (0-4); Lymphocytes # 0.9 K/mcL (0.6-4.6); Lymphocytes % 13.2 %; Mean Corpuscular HGB Conc 29.2 g/dL (31.6-35.5); Mean Corpuscular Hemoglobin 28.2 pg (28.0-33.3); Mean Corpuscular Volume 96.6 fL (83.0-100.0); Mean Platelet Volume 10.4 fL (9.4-12.4); Monocytes # 0.5 K/mcL (0.0-1.3); Monocytes % 7.4 %; Platelet Count 162 K/mcL (140-400); Red Blood Count 3.83 M/mcL (3.82-4.97); Red Cell Distribution Width 17.8 % (11.5-14.5); Segmented Neutrophils % 75.5 %
[2018-04-12 07:19] LABS: Calcium 8.7 mg/dL (8.6-10.3); Magnesium 1.5 mg/dL (1.6-2.6); Potassium 4.4 mEq/L (3.5-5.1)
[2018-04-12] MEDS: Lisinopril 20 MG TABLET PO SCH (07:32)
[2018-04-12] MEDS: Bumetanide 1 MG/4 ML VIAL IVP SCH ×2 (07:32→16:31)
[2018-04-12] MEDS: (Febuxostat [Uloric] 40 MG) PO SCH (07:32)
[2018-04-12] MEDS: *HR* Metformin 500 MG TABLET PO SCH ×2 (07:32→16:32)
[2018-04-12] MEDS: Isosorbide MONOnitrate (24 HR) 30 MG TAB.ER.24H PO SCH (07:32)
[2018-04-12] MEDS: tiZANidine 4 MG TABLET PO SCH ×2 (07:33→14:47)
[2018-04-12 09:52] LABS: Folate 16.1 ng/mL (3.0-16.0)
[2018-04-12] MEDS: traMADol 50 MG TABLET PO PRN (14:46)
[2018-04-12] MEDS ORDERED: Cyanocobalamin (B-12) 1,000 MCG/ML VIAL IM ONE (14:59)
--- NOTE | 2018-04-12 15:01 | Discharge Summary ---
Orders not resulted at time of discharge: Pending orders 04/12/18 06:44 Vitamin D 25 Hydroxy AM 0400 Date of Encounter: 04/12/18 Time of Encounter: 14:50 - Discharge Diagnosis (1) Congestive heart failure Priority: Primary Status: Acute Qualifiers: Heart failure type: diastolic Heart failure chronicity: acute on chronic Qualified Code(s): I50.33 - Acute on chronic diastolic (congestive) heart failure (2) DM type 2 (diabetes mellitus, type 2) Priority: Secondary Status: Chronic Qualifiers: Diabetes mellitus terminal clerk insulin use: without residential use Diabetes mellitus complication status: without complication Qualified Code(s): E11.9 - Type 2 diabetes mellitus without complications (3) Atrial fibrillation Priority: Secondary Status: Chronic Qualifiers: Atrial fibrillation type: chronic Qualified Code(s): I48.2 - Chronic atrial fibrillation (4) Acute exacerbation of chronic obstructive airways disease Priority: Secondary Status: Acute (5) Gout Priority: Secondary Status: Chronic Qualifiers: Gout site: unspecified site Gout etiology: unspecified cause Chronicity: chronic Presence of tophus: without tophus Qualified Code(s): M1A.9XX0 - Chronic gout, unspecified, without tophus (tophi) (6) Anemia Priority: Secondary Status: Acute Qualifiers: Anemia type: unspecified type Qualified Code(s): D64.9 - Anemia, unspecified (7) Hypomagnesemia Priority: Secondary Status: Acute (8) Low vitamin D level Priority: Secondary Status: Chronic Hospital course: Ms. Hess is a 83 year old female who came to emergency room complaining of increased dyspnea for approximately 5 days. She reports feeling chilled at home but denies fever. She had no significant cough or pain in her chest or abdomen. She was evaluated in emergency room and was felt to have exacerbation of COPD and CHF. She was admitted to [facility] floor for ongoing care needs. Initial orders were written by the emergency room physician. I saw her on April 11 and performed the history and physical. She was started on Imdur. Lisinopril was continued. IV diuretics were ordered. Cardizem was held because of borderline hypotension. She had clinical improvement with lessening dyspnea. BN peptide improved to 181 on day of discharge. She will remain off Cardizem at discharge. Consideration for Lanoxin could be given if AF with RVR occurs. She stated she had stopped Eliquis February 2018 because of bright red blood per rectum. I recommended she return to OAC therapy to lessen the risk of CVA from underlying atrial fibrillation. Her PCP can discuss continuing Eliquis or change to Coumadin that she has used previously without complications. Vitamin D level was ordered with results pending at time of discharge. Anemia testing showed iron 21, transferrin saturation 6%, transferrin 255, ferritin 35, B12 224, and folate 16.1. She will receive a B12 injection prior to discharge. She will start oral B12 and ferrous sulfate with ascorbic acid supplements at discharge. Her PCP can monitor labs. Magnesium level returned slightly low at 1.5. She will be prescribed magnesium oxide 40 mg daily. Her PCP can monitor. When I saw her on April 12 she felt improved and stable for discharge home. Oxygen saturation was 87-88% on 5 L cannula. A prescription was written for a high flow concentrator with orders for her to use oxygen at 5-10 L/m nasal cannula to keep sat at least 89%. She will follow with her PCP Antonette Rhodes CNP within 1 week. - Time Spent with Patient Total time spent providing and/or coordinating discharge services: - Discharge Medications Prescriptions: Ascorbic Acid [Vitamin C] 500 mg PO DAILY #30 capsule Cyanocobalamin (B-12) [Vitamin B12] 1,000 mcg PO DAILY #30 tablet Ferrous Sulfate 325 mg PO DAILY #30 tablet Isosorbide MONOnitrate (24 HR) [Imdur] 30 mg PO DAILY #30 tab.er.24h Magnesium Oxide 400 mg PO DAILY #30 tablet Home Medications: Albuterol Neb [Proventil Neb] 2.5 mg IH Q6HR 02/15/15 [History] Lisinopril [Zestril] 20 mg PO BID 02/15/15 [History] Febuxostat [Uloric] 40 mg PO DAILY 10/03/16 [History] metFORMIN [Glucophage] 500 mg PO BIDWM #60 tablet 03/29/17 [Rx] Tizanidine HCl [Zanaflex] 4 mg PO TID 06/22/17 [History] Tramadol HCl [Ultram] 50 mg PO QID PRN 06/22/17 [History] Apixaban [Eliquis] 5 mg PO BID 12/08/17 [History] Bumetanide [Bumex] 1 mg PO DAILY 12/08/17 [History] Ascorbic Acid [Vitamin C] 500 mg PO DAILY #30 capsule 04/12/18 [Rx] Cyanocobalamin (B-12) [Vitamin B12] 1,000 mcg PO DAILY #30 tablet 04/12/18 [Rx] Ferrous Sulfate 325 mg PO DAILY #30 tablet 04/12/18 [Rx] Isosorbide MONOnitrate (24 HR) [Imdur] 30 mg PO DAILY #30 tab.er.24h 04/12/18 [Rx] Loratadine [Allergy Relief] 10 mg PO DAILY PRN #0 04/12/18 [Rx] Magnesium Oxide 400 mg PO DAILY #30 tablet 04/12/18 [Rx] Allergies/Adverse Reactions: Allergy/AdvReac Type Severity Reaction Status Date / Time No Known Allergies Allergy Verified 01/03/18 15:30 Date of admission: 04/11/18 15:14 Primary care physician: Antonette Rhodes Consults: 04/10/18 18:38 Consult to Cardiac Rehabilitation-Phase1 [CONS] Routine Comment: Reason for Consult: heart failure Call Completed: Yes Consult to Nurse Navigator [CONS] Routine Comment: - Constitutional Vitals: Temp Pulse Resp BP Pulse Ox 98.2 F 89 16 113/63 90 04/12/18 06:20 04/12/18 06:20 04/12/18 09:05 04/12/18 06:20 04/12/18 09:05 - Patient Status Disposition: Home, Self-Care Condition: Fair - Discharge Instructions Follow Up With: Antonette Rhodes, [employer] [employer] [Primary Care Provider] - 1 week - Diet and Activity Activity: wear oxygen at all times Diet: diabetic diet
== END 2018-04-12 17:56 | disposition home or self-care (01) | DRG 292 ==
LOC: INPPIK 12:10 → EMEROOPIK 12:10 → INPPIK 18:55
PROVIDERS: ADMIT Internal Medicine; ATTEND Internal Medicine

== ENCOUNTER 2019-03-12 14:58 | Observation (INO) ==
[2019-03-12 16:01] LABS: Basophils % 0.6 %; Eosinophils # 0.2 K/mcL (0.0-0.6); Eosinophils % 2.2 %; Hemoglobin 11.4 g/dL (11.5-15.4); Immature Granulocytes % 0.1 % (0-4); Lymphocytes # 0.9 K/mcL (0.6-4.6); Lymphocytes % 13.1 %; Mean Corpuscular HGB Conc 30.8 g/dL (31.6-35.5); Mean Corpuscular Hemoglobin 31.1 pg (28.0-33.3); Mean Corpuscular Volume 100.8 fL (83.0-100.0); Mean Platelet Volume 9.8 fL (9.4-12.4); Monocytes # 0.4 K/mcL (0.0-1.3); Monocytes % 5.5 %; Neutrophils # 5.3 K/mcL (1.6-8.9); Platelet Count 231 K/mcL (140-400); Red Blood Count 3.67 M/mcL (3.82-4.97); Red Cell Distribution Width 14.3 % (11.5-14.5); Segmented Neutrophils % 78.5 %; White Blood Count 6.7 K/mcL (4.3-11.1)
[2019-03-12 16:10] LABS: INR 1.8; Prothrombin Time 20.4 Seconds (9.4-12.1)
[2019-03-12 16:13] LABS: Activated Partial Thrombo Time 41.1 Seconds (26.0-36.0)
[2019-03-12 16:20] LABS: Alanine Aminotransferase 12 Units/L (7-52); Albumin 3.7 g/dL (3.5-5.7); Albumin/Globulin Ratio 1.1 (1.1-2.2); Alkaline Phosphatase 56 Units/L (34-104); Aspartate Amino Transferase 21 Units/L (13-39); BUN/Creatinine Ratio 23 (6-26); Bilirubin,Total 0.5 mg/dL (0.3-1.0); Blood Urea Nitrogen 22 mg/dL (8-23); Calcium 9.4 mg/dL (8.6-10.3); Carbon Dioxide 40 mEq/L (23-29); Chloride 96 mEq/L (98-107); Globulin 3.5 g/dL (2.4-3.5); Glucose 129 mg/dL (70-105); Osmolality,Calculated 301 (280-300); Potassium 4.4 mEq/L (3.5-5.1); Sodium 143 mEq/L (136-145); Total Protein 7.2 g/dL (6.4-8.9); eGFR For African Americans > 60 (> 60); eGFR For Non-African Americans 56 (> 60)
[2019-03-12 16:44] LABS: Troponin I < 0.03 ng/mL (< 0.04)
[2019-03-12] MEDS ORDERED: Naloxone 0.4 MG/ML INJ IVP PRN (17:50)
[2019-03-12] MEDS ORDERED: Loratadine 10 MG TABLET PO PRN (17:50)
[2019-03-12] MEDS: Albuterol 2.5 MG/3 ML NEBULIZER IH SCH ×2 (18:24→22:21)
[2019-03-12] MEDS: Bumetanide 1 MG/4 ML VIAL IVP SCH (18:47)
[2019-03-12] MEDS: Lisinopril 20 MG TABLET PO SCH (19:48)
[2019-03-12] MEDS: Apixaban 5 MG TABLET PO SCH (19:48)
[2019-03-12] MEDS: tiZANidine 4 MG TABLET PO SCH (19:48)
[2019-03-13] MEDS: Albuterol 2.5 MG/3 ML NEBULIZER IH SCH ×3 (04:33→16:29)
[2019-03-13] MEDS ORDERED: Ascorbic Acid 500 MG TABLET PO SCH (06:30)
[2019-03-13 06:32] LABS: Basophils % 0.7 %; Eosinophils # 0.1 K/mcL (0.0-0.6); Eosinophils % 2.2 %; Hemoglobin 10.9 g/dL (11.5-15.4); Immature Granulocytes % 0.2 % (0-4); Lymphocytes # 0.9 K/mcL (0.6-4.6); Lymphocytes % 16.1 %; Mean Corpuscular HGB Conc 30.3 g/dL (31.6-35.5); Mean Corpuscular Hemoglobin 31.1 pg (28.0-33.3); Mean Corpuscular Volume 102.6 fL (83.0-100.0); Mean Platelet Volume 9.9 fL (9.4-12.4); Monocytes # 0.4 K/mcL (0.0-1.3); Monocytes % 7.1 %; Neutrophils # 4.1 K/mcL (1.6-8.9); Platelet Count 204 K/mcL (140-400); Red Blood Count 3.51 M/mcL (3.82-4.97); Red Cell Distribution Width 14.3 % (11.5-14.5); Segmented Neutrophils % 73.7 %; White Blood Count 5.5 K/mcL (4.3-11.1)
[2019-03-13 07:26] LABS: BUN/Creatinine Ratio 21 (6-26); Blood Urea Nitrogen 20 mg/dL (8-23); Carbon Dioxide 42 mEq/L (23-29); Chloride 96 mEq/L (98-107); Glucose 151 mg/dL (70-105); Osmolality,Calculated 304 (280-300); Potassium 4.3 mEq/L (3.5-5.1); Sodium 144 mEq/L (136-145); eGFR For African Americans > 60 (> 60); eGFR For Non-African Americans 56 (> 60)
[2019-03-13] MEDS ORDERED: *HR* GlipiZIDE XL (24 HR) 2.5 MG TABLET PO SCH (08:00)
[2019-03-13] MEDS ORDERED: *HR* Metformin 500 MG TABLET PO SCH (08:00)
[2019-03-13] MEDS: Bumetanide 1 MG/4 ML VIAL IVP SCH (08:20)
[2019-03-13] MEDS: Apixaban 5 MG TABLET PO SCH (08:21)
[2019-03-13] MEDS: Lisinopril 20 MG TABLET PO SCH (08:21)
[2019-03-13] MEDS: tiZANidine 4 MG TABLET PO SCH ×2 (08:21→14:28)
[2019-03-13] MEDS ORDERED: amLODIPine 5 MG TABLET PO SCH (09:00)
[2019-03-13] MEDS ORDERED: Bumetanide 1 MG TABLET PO SCH (09:00)
[2019-03-13] MEDS ORDERED: Magnesium Oxide 400 MG TABLET PO SCH (09:00)
[2019-03-13] MEDS ORDERED: Isosorbide MONOnitrate (24 HR) 30 MG TAB.ER.24H PO SCH (09:00)
[2019-03-13] MEDS ORDERED: Metoprolol XL (24 HR) Succ 25 MG TAB.ER.24H PO SCH (09:00)
[2019-03-13] MEDS ORDERED: Cholecalciferol (D-3) 1,000 UNIT (25MCG) TABLET PO SCH (09:00)
[2019-03-13] MEDS ORDERED: ULORIC 40MG TAB PO SCH (09:00)
[2019-03-13] MEDS ORDERED: Cyanocobalamin (B-12) 1,000 MCG TABLET PO SCH (09:00)
[2019-03-13 14:11] VITALS: BP 102/50
== END 2019-03-13 17:18 | disposition home health service (06) ==
LOC: EMEROOPIK 14:58 → INPPIK 14:58
PROVIDERS: ADMIT Family Medicine; ATTEND Family Medicine

== ENCOUNTER 2019-08-27 11:51 | Inpatient (IN) ==
[2019-08-27] MEDS: acetaZOLAMIDE 250 MG TABLET PO SCH (20:10)
[2019-08-27] MEDS: Cholecalciferol (D-3) 1,000 UNIT (25MCG) TABLET PO SCH (20:10)
[2019-08-27] MEDS: Apixaban 5 MG TABLET PO SCH (20:10)
[2019-08-27] MEDS: lisinopriL 20 MG TABLET PO SCH (20:10)
[2019-08-28] MEDS ORDERED: Albuterol 2.5 MG/3 ML NEBULIZER IH SCH
[2019-08-28 07:03] LABS: Hematocrit 36.3 % (35.3-44.9); Hemoglobin 10.7 g/dL (11.5-15.4); Immature Granulocytes % 0.4 % (0-4); Lymphocytes # 0.4 K/mcL (0.6-4.6); Lymphocytes % 7.5 %; Mean Corpuscular HGB Conc 29.5 g/dL (31.6-35.5); Mean Corpuscular Volume 105.2 fL (83.0-100.0); Mean Platelet Volume 10.3 fL (9.4-12.4); Monocytes # 0.3 K/mcL (0.0-1.3); Monocytes % 4.5 %; Neutrophils # 4.9 K/mcL (1.6-8.9); Platelet Count 182 K/mcL (140-400); Red Blood Count 3.45 M/mcL (3.82-4.97); Red Cell Distribution Width 14.9 % (11.5-14.5); Segmented Neutrophils % 87.6 %; White Blood Count 5.6 K/mcL (4.3-11.1)
[2019-08-28 07:27] LABS: BUN/Creatinine Ratio 29 (6-26); Blood Urea Nitrogen 27 mg/dL (8-23); Calcium 9.3 mg/dL (8.6-10.3); Carbon Dioxide 35 mEq/L (23-29); Chloride 96 mEq/L (98-107); Glucose 181 mg/dL (70-105); Osmolality,Calculated 296 (280-300); Potassium 3.6 mEq/L (3.5-5.1); Sodium 138 mEq/L (136-145); eGFR For African Americans > 60 (> 60); eGFR For Non-African Americans 56 (> 60)
[2019-08-28] MEDS ORDERED: predniSONE 20 MG TABLET PO SCH (08:00)
[2019-08-28] MEDS: Isosorbide MONOnitrate (24 HR) 30 MG TAB.ER.24H PO SCH (08:21)
[2019-08-28] MEDS: Magnesium Oxide 400 MG TABLET PO SCH (08:21)
[2019-08-28] MEDS: Cyanocobalamin (B-12) 1,000 MCG TABLET PO SCH (08:21)
[2019-08-28] MEDS: *HR* SitaGLIPtin 25 MG TABLET PO SCH (08:21)
[2019-08-28] MEDS: lisinopriL 20 MG TABLET PO SCH ×2 (08:21→20:06)
[2019-08-28] MEDS: acetaZOLAMIDE 250 MG TABLET PO SCH ×2 (08:21→20:06)
[2019-08-28] MEDS: allopurinoL 100 MG TABLET PO SCH (08:21)
[2019-08-28] MEDS: *HR* GlipiZIDE XL (24 HR) 2.5 MG TABLET PO SCH (08:21)
[2019-08-28] MEDS: Metoprolol XL (24 HR) Succ 25 MG TAB.ER.24H PO SCH (08:22)
[2019-08-28] MEDS: Ascorbic Acid 500 MG TABLET PO SCH (08:22)
[2019-08-28] MEDS: Cholecalciferol (D-3) 1,000 UNIT (25MCG) TABLET PO SCH (08:22)
[2019-08-28] MEDS: Apixaban 5 MG TABLET PO SCH ×2 (08:22→20:06)
[2019-08-28] MEDS: Albuterol 2.5 MG/3 ML NEBULIZER IH SCH ×4 (12:34→23:10)
[2019-08-28] MEDS ORDERED: Ipratropium 1 PUFF INHALER IH PRN (13:12)
[2019-08-28] MEDS: Budesonide/Formoterol 160/4.5 1 PUFF INH IH SCH ×2 (15:42→20:16)
[2019-08-29] MEDS: Albuterol 2.5 MG/3 ML NEBULIZER IH SCH ×5 (04:33→20:34)
[2019-08-29 06:54] LABS: BUN/Creatinine Ratio 28 (6-26); Blood Urea Nitrogen 27 mg/dL (8-23); Calcium 9.2 mg/dL (8.6-10.3); Carbon Dioxide 38 mEq/L (23-29); Chloride 98 mEq/L (98-107); Glucose 120 mg/dL (70-105); Osmolality,Calculated 296 (280-300); Potassium 3.4 mEq/L (3.5-5.1); Sodium 140 mEq/L (136-145); eGFR For African Americans > 60 (> 60); eGFR For Non-African Americans 55 (> 60)
[2019-08-29] MEDS: Budesonide/Formoterol 160/4.5 1 PUFF INH IH SCH ×2 (07:33→20:40)
[2019-08-29] MEDS: Magnesium Oxide 400 MG TABLET PO SCH (09:14)
[2019-08-29] MEDS: allopurinoL 100 MG TABLET PO SCH (09:14)
[2019-08-29] MEDS: Ascorbic Acid 500 MG TABLET PO SCH (09:14)
[2019-08-29] MEDS: Loratadine 10 MG TABLET PO PRN (09:15)
[2019-08-29] MEDS: *HR* GlipiZIDE XL (24 HR) 2.5 MG TABLET PO SCH (09:15)
[2019-08-29] MEDS: Isosorbide MONOnitrate (24 HR) 30 MG TAB.ER.24H PO SCH (09:15)
[2019-08-29] MEDS: predniSONE 20 MG TABLET PO SCH (09:15)
[2019-08-29] MEDS: Cholecalciferol (D-3) 1,000 UNIT (25MCG) TABLET PO SCH (09:15)
[2019-08-29] MEDS: Cyanocobalamin (B-12) 1,000 MCG TABLET PO SCH (09:15)
[2019-08-29] MEDS: *HR* SitaGLIPtin 25 MG TABLET PO SCH (09:15)
[2019-08-29] MEDS: lisinopriL 20 MG TABLET PO SCH ×2 (09:15→20:59)
[2019-08-29] MEDS: acetaZOLAMIDE 250 MG TABLET PO SCH ×2 (09:15→20:59)
[2019-08-29] MEDS: Metoprolol XL (24 HR) Succ 25 MG TAB.ER.24H PO SCH (09:15)
[2019-08-29] MEDS: Apixaban 5 MG TABLET PO SCH ×2 (09:15→20:58)
[2019-08-29] MEDS: Nystatin POWDER 30 GM BOTTLE TP SCH ×2 (14:57→20:59)
[2019-08-30] MEDS: Albuterol 2.5 MG/3 ML NEBULIZER IH SCH ×6 (00:43→20:34)
[2019-08-30] MEDS: *HR* GlipiZIDE XL (24 HR) 2.5 MG TABLET PO SCH (08:09)
[2019-08-30] MEDS: allopurinoL 100 MG TABLET PO SCH (08:09)
[2019-08-30] MEDS: Ascorbic Acid 500 MG TABLET PO SCH (08:09)
[2019-08-30] MEDS: acetaZOLAMIDE 250 MG TABLET PO SCH ×2 (08:09→21:20)
[2019-08-30] MEDS: Nystatin POWDER 30 GM BOTTLE TP SCH ×3 (08:09→21:20)
[2019-08-30] MEDS: Cyanocobalamin (B-12) 1,000 MCG TABLET PO SCH (08:09)
[2019-08-30] MEDS: predniSONE 20 MG TABLET PO SCH (08:10)
[2019-08-30] MEDS: *HR* SitaGLIPtin 25 MG TABLET PO SCH (08:10)
[2019-08-30] MEDS: Metoprolol XL (24 HR) Succ 25 MG TAB.ER.24H PO SCH (08:10)
[2019-08-30] MEDS: Magnesium Oxide 400 MG TABLET PO SCH (08:10)
[2019-08-30] MEDS: Loratadine 10 MG TABLET PO PRN (08:10)
[2019-08-30] MEDS: lisinopriL 20 MG TABLET PO SCH ×2 (08:10→21:20)
[2019-08-30] MEDS: Apixaban 5 MG TABLET PO SCH ×2 (08:10→21:20)
[2019-08-30] MEDS: Cholecalciferol (D-3) 1,000 UNIT (25MCG) TABLET PO SCH (08:10)
[2019-08-30] MEDS: Isosorbide MONOnitrate (24 HR) 30 MG TAB.ER.24H PO SCH (08:10)
[2019-08-30] MEDS: Budesonide/Formoterol 160/4.5 1 PUFF INH IH SCH ×2 (08:52→20:39)
[2019-08-30] MEDS: Acetaminophen 325 MG TABLET PO PRN (21:23)
[2019-08-31] MEDS: Albuterol 2.5 MG/3 ML NEBULIZER IH SCH ×7 (00:44→23:38)
[2019-08-31 07:36] LABS: BUN/Creatinine Ratio 28 (6-26); Blood Urea Nitrogen 27 mg/dL (8-23); Calcium 9.1 mg/dL (8.6-10.3); Carbon Dioxide 33 mEq/L (23-29); Chloride 102 mEq/L (98-107); Glucose 150 mg/dL (70-105); Osmolality,Calculated 300 (280-300); Potassium 3.9 mEq/L (3.5-5.1); Sodium 141 mEq/L (136-145); eGFR For African Americans > 60 (> 60); eGFR For Non-African Americans 56 (> 60)
[2019-08-31] MEDS: *HR* SitaGLIPtin 25 MG TABLET PO SCH (08:53)
[2019-08-31] MEDS: *HR* GlipiZIDE XL (24 HR) 2.5 MG TABLET PO SCH (08:54)
[2019-08-31] MEDS: Apixaban 5 MG TABLET PO SCH ×2 (08:54→20:57)
[2019-08-31] MEDS: Acetaminophen 325 MG TABLET PO PRN (08:54)
[2019-08-31] MEDS: Magnesium Oxide 400 MG TABLET PO SCH (08:54)
[2019-08-31] MEDS: Cyanocobalamin (B-12) 1,000 MCG TABLET PO SCH (08:54)
[2019-08-31] MEDS: predniSONE 20 MG TABLET PO SCH (08:54)
[2019-08-31] MEDS: Metoprolol XL (24 HR) Succ 25 MG TAB.ER.24H PO SCH (08:54)
[2019-08-31] MEDS: lisinopriL 20 MG TABLET PO SCH ×2 (08:55→20:57)
[2019-08-31] MEDS: Nystatin POWDER 30 GM BOTTLE TP SCH ×3 (08:55→20:57)
[2019-08-31] MEDS: Ascorbic Acid 500 MG TABLET PO SCH (08:55)
[2019-08-31] MEDS: allopurinoL 100 MG TABLET PO SCH (08:55)
[2019-08-31] MEDS: Cholecalciferol (D-3) 1,000 UNIT (25MCG) TABLET PO SCH (08:55)
[2019-08-31] MEDS: Isosorbide MONOnitrate (24 HR) 30 MG TAB.ER.24H PO SCH (08:55)
[2019-08-31] MEDS: Budesonide/Formoterol 160/4.5 1 PUFF INH IH SCH ×2 (09:28→20:19)
[2019-08-31] MEDS: Furosemide 40 MG TABLET PO SCH (12:09)
[2019-09-01] MEDS: Albuterol 2.5 MG/3 ML NEBULIZER IH SCH ×6 (04:28→23:32)
[2019-09-01] MEDS: Budesonide/Formoterol 160/4.5 1 PUFF INH IH SCH ×2 (07:55→21:18)
[2019-09-01] MEDS: Isosorbide MONOnitrate (24 HR) 30 MG TAB.ER.24H PO SCH (08:41)
[2019-09-01] MEDS: Acetaminophen 325 MG TABLET PO PRN ×2 (08:41→23:41)
[2019-09-01] MEDS: predniSONE 20 MG TABLET PO SCH (08:42)
[2019-09-01] MEDS: Cyanocobalamin (B-12) 1,000 MCG TABLET PO SCH (08:42)
[2019-09-01] MEDS: Metoprolol XL (24 HR) Succ 25 MG TAB.ER.24H PO SCH (08:42)
[2019-09-01] MEDS: lisinopriL 20 MG TABLET PO SCH ×2 (08:42→21:49)
[2019-09-01] MEDS: Furosemide 40 MG TABLET PO SCH (08:42)
[2019-09-01] MEDS: Cholecalciferol (D-3) 1,000 UNIT (25MCG) TABLET PO SCH (08:42)
[2019-09-01] MEDS: Apixaban 5 MG TABLET PO SCH ×2 (08:42→21:49)
[2019-09-01] MEDS: Magnesium Oxide 400 MG TABLET PO SCH (08:42)
[2019-09-01] MEDS: *HR* GlipiZIDE XL (24 HR) 2.5 MG TABLET PO SCH (08:42)
[2019-09-01] MEDS: Ascorbic Acid 500 MG TABLET PO SCH (08:43)
[2019-09-01] MEDS: *HR* SitaGLIPtin 25 MG TABLET PO SCH (08:43)
[2019-09-01] MEDS: Nystatin POWDER 30 GM BOTTLE TP SCH ×3 (08:43→21:49)
[2019-09-01] MEDS: allopurinoL 100 MG TABLET PO SCH (08:43)
[2019-09-02] MEDS: Albuterol 2.5 MG/3 ML NEBULIZER IH SCH ×6 (04:45→21:26)
[2019-09-02] MEDS: Isosorbide MONOnitrate (24 HR) 30 MG TAB.ER.24H PO SCH (08:51)
[2019-09-02] MEDS: Cyanocobalamin (B-12) 1,000 MCG TABLET PO SCH (08:51)
[2019-09-02] MEDS: Apixaban 5 MG TABLET PO SCH ×2 (08:51→20:44)
[2019-09-02] MEDS: predniSONE 20 MG TABLET PO SCH (08:51)
[2019-09-02] MEDS: Magnesium Oxide 400 MG TABLET PO SCH (08:52)
[2019-09-02] MEDS: Ascorbic Acid 500 MG TABLET PO SCH (08:52)
[2019-09-02] MEDS: Furosemide 40 MG TABLET PO SCH (08:52)
[2019-09-02] MEDS: *HR* SitaGLIPtin 25 MG TABLET PO SCH (08:52)
[2019-09-02] MEDS: *HR* GlipiZIDE XL (24 HR) 2.5 MG TABLET PO SCH (08:52)
[2019-09-02] MEDS: allopurinoL 100 MG TABLET PO SCH (08:52)
[2019-09-02] MEDS: Cholecalciferol (D-3) 1,000 UNIT (25MCG) TABLET PO SCH (08:52)
[2019-09-02] MEDS: Nystatin POWDER 30 GM BOTTLE TP SCH ×3 (08:53→20:44)
[2019-09-02] MEDS: lisinopriL 20 MG TABLET PO SCH ×2 (08:53→20:44)
[2019-09-02] MEDS: Metoprolol XL (24 HR) Succ 25 MG TAB.ER.24H PO SCH (08:53)
[2019-09-02] MEDS: Acetaminophen 325 MG TABLET PO PRN ×2 (08:58→20:44)
[2019-09-02] MEDS: Budesonide/Formoterol 160/4.5 1 PUFF INH IH SCH ×2 (10:15→21:26)
[2019-09-03 06:13] LABS: Hematocrit 31.9 % (35.3-44.9); Hemoglobin 10.2 g/dL (11.5-15.4); Mean Corpuscular Hemoglobin 30.8 pg (28.0-33.3); Mean Corpuscular Volume 96.4 fL (83.0-100.0); Mean Platelet Volume 10.8 fL (9.4-12.4); Platelet Count 187 K/mcL (140-400); Red Blood Count 3.31 M/mcL (3.82-4.97); Red Cell Distribution Width 14.4 % (11.5-14.5); White Blood Count 5.4 K/mcL (4.3-11.1)
[2019-09-03 06:34] LABS: BUN/Creatinine Ratio 33 (6-26); Blood Urea Nitrogen 26 mg/dL (8-23); Carbon Dioxide 35 mEq/L (23-29); Chloride 100 mEq/L (98-107); Glucose 137 mg/dL (70-105); Osmolality,Calculated 299 (280-300); Potassium 3.5 mEq/L (3.5-5.1); Sodium 141 mEq/L (136-145); eGFR For African Americans > 60 (> 60); eGFR For Non-African Americans > 60 (> 60)
[2019-09-03] MEDS: predniSONE 20 MG TABLET PO SCH (07:45)
[2019-09-03] MEDS: *HR* GlipiZIDE XL (24 HR) 2.5 MG TABLET PO SCH (07:45)
[2019-09-03] MEDS: Magnesium Oxide 400 MG TABLET PO SCH (07:45)
[2019-09-03] MEDS: Cholecalciferol (D-3) 1,000 UNIT (25MCG) TABLET PO SCH (07:46)
[2019-09-03] MEDS: Cyanocobalamin (B-12) 1,000 MCG TABLET PO SCH (07:46)
[2019-09-03] MEDS: Apixaban 5 MG TABLET PO SCH ×2 (07:46→20:30)
[2019-09-03] MEDS: *HR* SitaGLIPtin 25 MG TABLET PO SCH (07:46)
[2019-09-03] MEDS: lisinopriL 20 MG TABLET PO SCH ×2 (07:46→20:30)
[2019-09-03] MEDS: Isosorbide MONOnitrate (24 HR) 30 MG TAB.ER.24H PO SCH (07:46)
[2019-09-03] MEDS: Ascorbic Acid 500 MG TABLET PO SCH (07:46)
[2019-09-03] MEDS: Metoprolol XL (24 HR) Succ 25 MG TAB.ER.24H PO SCH (07:46)
[2019-09-03] MEDS: allopurinoL 100 MG TABLET PO SCH (07:46)
[2019-09-03] MEDS: Furosemide 40 MG TABLET PO SCH (07:46)
[2019-09-03] MEDS: Nystatin POWDER 30 GM BOTTLE TP SCH ×3 (07:47→20:30)
[2019-09-03] MEDS: Budesonide/Formoterol 160/4.5 1 PUFF INH IH SCH ×2 (09:37→22:54)
[2019-09-03] MEDS: Albuterol 2.5 MG/3 ML NEBULIZER IH SCH ×3 (09:37→22:54)
[2019-09-03] MEDS: Acetaminophen 325 MG TABLET PO PRN (20:29)
[2019-09-04] MEDS: Albuterol 2.5 MG/3 ML NEBULIZER IH SCH ×4 (05:10→23:03)
[2019-09-04] MEDS: Budesonide/Formoterol 160/4.5 1 PUFF INH IH SCH ×2 (09:17→23:03)
[2019-09-04] MEDS: *HR* GlipiZIDE XL (24 HR) 2.5 MG TABLET PO SCH (10:35)
[2019-09-04] MEDS: Magnesium Oxide 400 MG TABLET PO SCH (10:35)
[2019-09-04] MEDS: allopurinoL 100 MG TABLET PO SCH (10:35)
[2019-09-04] MEDS: Furosemide 40 MG TABLET PO SCH (10:35)
[2019-09-04] MEDS: Loratadine 10 MG TABLET PO PRN (10:35)
[2019-09-04] MEDS: Nystatin POWDER 30 GM BOTTLE TP SCH ×3 (10:35→20:18)
[2019-09-04] MEDS: *HR* SitaGLIPtin 25 MG TABLET PO SCH (10:35)
[2019-09-04] MEDS: Cyanocobalamin (B-12) 1,000 MCG TABLET PO SCH (10:35)
[2019-09-04] MEDS: Cholecalciferol (D-3) 1,000 UNIT (25MCG) TABLET PO SCH (10:35)
[2019-09-04] MEDS: Isosorbide MONOnitrate (24 HR) 30 MG TAB.ER.24H PO SCH (10:35)
[2019-09-04] MEDS: lisinopriL 20 MG TABLET PO SCH ×2 (10:35→20:13)
[2019-09-04] MEDS: Ascorbic Acid 500 MG TABLET PO SCH (10:35)
[2019-09-04] MEDS: Apixaban 5 MG TABLET PO SCH ×2 (10:35→20:13)
[2019-09-04] MEDS: predniSONE 20 MG TABLET PO SCH (10:35)
[2019-09-04] MEDS: Metoprolol XL (24 HR) Succ 25 MG TAB.ER.24H PO SCH (10:35)
[2019-09-04] MEDS: Acetaminophen 325 MG TABLET PO PRN (20:12)
[2019-09-05] MEDS: Albuterol 2.5 MG/3 ML NEBULIZER IH SCH ×4 (07:28→22:10)
[2019-09-05] MEDS: *HR* GlipiZIDE XL (24 HR) 2.5 MG TABLET PO SCH (09:07)
[2019-09-05] MEDS: *HR* SitaGLIPtin 25 MG TABLET PO SCH (09:08)
[2019-09-05] MEDS: Isosorbide MONOnitrate (24 HR) 30 MG TAB.ER.24H PO SCH (09:08)
[2019-09-05] MEDS: Apixaban 5 MG TABLET PO SCH ×2 (09:08→21:03)
[2019-09-05] MEDS: Metoprolol XL (24 HR) Succ 25 MG TAB.ER.24H PO SCH (09:09)
[2019-09-05] MEDS: predniSONE 20 MG TABLET PO SCH (09:09)
[2019-09-05] MEDS: Magnesium Oxide 400 MG TABLET PO SCH (09:09)
[2019-09-05] MEDS: Furosemide 40 MG TABLET PO SCH (09:09)
[2019-09-05] MEDS: Cholecalciferol (D-3) 1,000 UNIT (25MCG) TABLET PO SCH (09:10)
[2019-09-05] MEDS: Cyanocobalamin (B-12) 1,000 MCG TABLET PO SCH (09:10)
[2019-09-05] MEDS: lisinopriL 20 MG TABLET PO SCH ×2 (09:10→21:03)
[2019-09-05] MEDS: Ascorbic Acid 500 MG TABLET PO SCH (09:10)
[2019-09-05] MEDS: allopurinoL 100 MG TABLET PO SCH (09:10)
[2019-09-05] MEDS: Nystatin POWDER 30 GM BOTTLE TP SCH ×3 (09:27→21:03)
[2019-09-05] MEDS: Budesonide/Formoterol 160/4.5 1 PUFF INH IH SCH ×2 (10:41→22:09)
[2019-09-06] MEDS: Albuterol 2.5 MG/3 ML NEBULIZER IH SCH ×4 (05:19→22:05)
[2019-09-06 07:41] LABS: Hematocrit 33.3 % (35.3-44.9); Hemoglobin 10.5 g/dL (11.5-15.4); Mean Corpuscular HGB Conc 31.5 g/dL (31.6-35.5); Mean Corpuscular Hemoglobin 30.5 pg (28.0-33.3); Mean Corpuscular Volume 96.8 fL (83.0-100.0); Mean Platelet Volume 10.8 fL (9.4-12.4); Platelet Count 194 K/mcL (140-400); Red Blood Count 3.44 M/mcL (3.82-4.97); Red Cell Distribution Width 14.5 % (11.5-14.5); White Blood Count 6.6 K/mcL (4.3-11.1)
[2019-09-06 09:09] LABS: BUN/Creatinine Ratio 24 (6-26); Blood Urea Nitrogen 21 mg/dL (8-23); Carbon Dioxide 38 mEq/L (23-29); Chloride 97 mEq/L (98-107); Glucose 143 mg/dL (70-105); Osmolality,Calculated 297 (280-300); Potassium 3.6 mEq/L (3.5-5.1); Sodium 141 mEq/L (136-145); eGFR For African Americans > 60 (> 60); eGFR For Non-African Americans > 60 (> 60)
[2019-09-06] MEDS: *HR* GlipiZIDE XL (24 HR) 2.5 MG TABLET PO SCH (09:58)
[2019-09-06] MEDS: Apixaban 5 MG TABLET PO SCH ×2 (09:59→20:42)
[2019-09-06] MEDS: Ascorbic Acid 500 MG TABLET PO SCH (09:59)
[2019-09-06] MEDS: Isosorbide MONOnitrate (24 HR) 30 MG TAB.ER.24H PO SCH (09:59)
[2019-09-06] MEDS: Furosemide 40 MG TABLET PO SCH (10:03)
[2019-09-06] MEDS: *HR* SitaGLIPtin 25 MG TABLET PO SCH (10:03)
[2019-09-06] MEDS: predniSONE 20 MG TABLET PO SCH (10:03)
[2019-09-06] MEDS: Magnesium Oxide 400 MG TABLET PO SCH (10:03)
[2019-09-06] MEDS: Cyanocobalamin (B-12) 1,000 MCG TABLET PO SCH (10:04)
[2019-09-06] MEDS: Cholecalciferol (D-3) 1,000 UNIT (25MCG) TABLET PO SCH (10:04)
[2019-09-06] MEDS: lisinopriL 20 MG TABLET PO SCH ×2 (10:04→20:42)
[2019-09-06] MEDS: allopurinoL 100 MG TABLET PO SCH (10:04)
[2019-09-06] MEDS: Metoprolol XL (24 HR) Succ 25 MG TAB.ER.24H PO SCH (10:04)
[2019-09-06] MEDS: Nystatin POWDER 30 GM BOTTLE TP SCH ×3 (10:05→20:42)
[2019-09-06] MEDS: Budesonide/Formoterol 160/4.5 1 PUFF INH IH SCH ×2 (10:12→22:05)
[2019-09-06] MEDS: Acetaminophen 325 MG TABLET PO PRN (13:57)
[2019-09-07] MEDS: Albuterol 2.5 MG/3 ML NEBULIZER IH SCH ×4 (04:57→22:32)
[2019-09-07] MEDS: *HR* SitaGLIPtin 25 MG TABLET PO SCH (07:51)
[2019-09-07] MEDS: Apixaban 5 MG TABLET PO SCH ×2 (07:51→20:25)
[2019-09-07] MEDS: allopurinoL 100 MG TABLET PO SCH (07:51)
[2019-09-07] MEDS: Cholecalciferol (D-3) 1,000 UNIT (25MCG) TABLET PO SCH (07:51)
[2019-09-07] MEDS: Furosemide 40 MG TABLET PO SCH (07:51)
[2019-09-07] MEDS: lisinopriL 20 MG TABLET PO SCH ×2 (07:51→18:51)
[2019-09-07] MEDS: Isosorbide MONOnitrate (24 HR) 30 MG TAB.ER.24H PO SCH (07:51)
[2019-09-07] MEDS: Cyanocobalamin (B-12) 1,000 MCG TABLET PO SCH (07:51)
[2019-09-07] MEDS: predniSONE 20 MG TABLET PO SCH (07:52)
[2019-09-07] MEDS: Metoprolol XL (24 HR) Succ 25 MG TAB.ER.24H PO SCH (07:52)
[2019-09-07] MEDS: Magnesium Oxide 400 MG TABLET PO SCH (07:52)
[2019-09-07] MEDS: *HR* GlipiZIDE XL (24 HR) 2.5 MG TABLET PO SCH (07:52)
[2019-09-07] MEDS: *HR* Metformin 500 MG TABLET PO SCH (07:52)
[2019-09-07] MEDS: Ascorbic Acid 500 MG TABLET PO SCH (07:52)
[2019-09-07] MEDS: Budesonide/Formoterol 160/4.5 1 PUFF INH IH SCH ×2 (10:21→22:32)
[2019-09-07] MEDS: Nystatin POWDER 30 GM BOTTLE TP SCH ×3 (13:56→20:25)
[2019-09-07] MEDS: Acetaminophen 325 MG TABLET PO PRN (20:25)
[2019-09-08] MEDS: Albuterol 2.5 MG/3 ML NEBULIZER IH SCH ×4 (05:05→22:57)
[2019-09-08] MEDS: Magnesium Oxide 400 MG TABLET PO SCH (09:37)
[2019-09-08] MEDS: *HR* GlipiZIDE XL (24 HR) 2.5 MG TABLET PO SCH (09:37)
[2019-09-08] MEDS: Metoprolol XL (24 HR) Succ 25 MG TAB.ER.24H PO SCH (09:37)
[2019-09-08] MEDS: Cyanocobalamin (B-12) 1,000 MCG TABLET PO SCH (09:38)
[2019-09-08] MEDS: Isosorbide MONOnitrate (24 HR) 30 MG TAB.ER.24H PO SCH (09:38)
[2019-09-08] MEDS: Furosemide 40 MG TABLET PO SCH (09:38)
[2019-09-08] MEDS: Loratadine 10 MG TABLET PO PRN (09:38)
[2019-09-08] MEDS: allopurinoL 100 MG TABLET PO SCH (09:38)
[2019-09-08] MEDS: Apixaban 5 MG TABLET PO SCH ×2 (09:38→20:21)
[2019-09-08] MEDS: Cholecalciferol (D-3) 1,000 UNIT (25MCG) TABLET PO SCH (09:38)
[2019-09-08] MEDS: Ascorbic Acid 500 MG TABLET PO SCH (09:38)
[2019-09-08] MEDS: predniSONE 20 MG TABLET PO SCH (09:38)
[2019-09-08] MEDS: *HR* SitaGLIPtin 25 MG TABLET PO SCH (09:38)
[2019-09-08] MEDS: *HR* Metformin 500 MG TABLET PO SCH (09:38)
[2019-09-08] MEDS: lisinopriL 20 MG TABLET PO SCH ×2 (09:38→20:21)
[2019-09-08] MEDS: Nystatin POWDER 30 GM BOTTLE TP SCH ×3 (09:42→20:25)
[2019-09-08] MEDS: Budesonide/Formoterol 160/4.5 1 PUFF INH IH SCH ×2 (11:10→22:57)
[2019-09-08] MEDS: Acetaminophen 325 MG TABLET PO PRN (23:08)
[2019-09-09] MEDS: Albuterol 2.5 MG/3 ML NEBULIZER IH SCH ×2 (05:52→09:52)
[2019-09-09 06:13] LABS: Basophils % 0.1 %; Eosinophils # 0.1 K/mcL (0.0-0.6); Eosinophils % 1.3 %; Hematocrit 33.4 % (35.3-44.9); Hemoglobin 10.5 g/dL (11.5-15.4); Immature Granulocytes % 0.4 % (0-4); Lymphocytes # 0.8 K/mcL (0.6-4.6); Lymphocytes % 11.1 %; Mean Corpuscular HGB Conc 31.4 g/dL (31.6-35.5); Mean Corpuscular Hemoglobin 30.6 pg (28.0-33.3); Mean Corpuscular Volume 97.4 fL (83.0-100.0); Mean Platelet Volume 10.6 fL (9.4-12.4); Monocytes # 0.5 K/mcL (0.0-1.3); Monocytes % 6.6 %; Neutrophils # 5.7 K/mcL (1.6-8.9); Platelet Count 194 K/mcL (140-400); Red Blood Count 3.43 M/mcL (3.82-4.97); Red Cell Distribution Width 14.6 % (11.5-14.5); Segmented Neutrophils % 80.5 %; White Blood Count 7.1 K/mcL (4.3-11.1)
[2019-09-09 06:45] LABS: BUN/Creatinine Ratio 24 (6-26); Blood Urea Nitrogen 23 mg/dL (8-23); Calcium 8.7 mg/dL (8.6-10.3); Carbon Dioxide 32 mEq/L (23-29); Chloride 97 mEq/L (98-107); Glucose 151 mg/dL (70-105); Osmolality,Calculated 299 (280-300); Potassium 3.9 mEq/L (3.5-5.1); Sodium 141 mEq/L (136-145); eGFR For African Americans > 60 (> 60); eGFR For Non-African Americans 54 (> 60)
[2019-09-09 07:25] VITALS: BP 132/76
[2019-09-09] MEDS: Cyanocobalamin (B-12) 1,000 MCG TABLET PO SCH (08:08)
[2019-09-09] MEDS: Metoprolol XL (24 HR) Succ 25 MG TAB.ER.24H PO SCH (08:08)
[2019-09-09] MEDS: lisinopriL 20 MG TABLET PO SCH (08:08)
[2019-09-09] MEDS: Apixaban 5 MG TABLET PO SCH (08:08)
[2019-09-09] MEDS: Isosorbide MONOnitrate (24 HR) 30 MG TAB.ER.24H PO SCH (08:08)
[2019-09-09] MEDS: Ascorbic Acid 500 MG TABLET PO SCH (08:08)
[2019-09-09] MEDS: *HR* GlipiZIDE XL (24 HR) 2.5 MG TABLET PO SCH (08:08)
[2019-09-09] MEDS: *HR* SitaGLIPtin 25 MG TABLET PO SCH (08:08)
[2019-09-09] MEDS: Cholecalciferol (D-3) 1,000 UNIT (25MCG) TABLET PO SCH (08:08)
[2019-09-09] MEDS: Furosemide 40 MG TABLET PO SCH (08:08)
[2019-09-09] MEDS: allopurinoL 100 MG TABLET PO SCH (08:09)
[2019-09-09] MEDS: *HR* Metformin 500 MG TABLET PO SCH (08:09)
[2019-09-09] MEDS: Magnesium Oxide 400 MG TABLET PO SCH (08:09)
[2019-09-09] MEDS ORDERED: predniSONE 20 MG TABLET PO SCH (09:00)
[2019-09-09] MEDS: Budesonide/Formoterol 160/4.5 1 PUFF INH IH SCH (09:52)
== END 2019-09-09 11:33 | disposition home health service (06) | DRG 190 ==
LOC: INPPIK 18:29
PROVIDERS: ADMIT Family Medicine; ATTEND Family Medicine

== ENCOUNTER 2019-10-20 17:41 | Inpatient (IN) ==
[2019-10-20] MEDS ORDERED: Ondansetron 4 MG/2 ML VIAL IVP ONE (17:50)
[2019-10-20] MEDS ORDERED: 0.9 % Sodium Chloride 500 ML IVC ONE (17:50)
[2019-10-20] MEDS ORDERED: 0.9 % Sodium Chloride 1,000 ML IVC SCH ×4 (18:00→20:24)
[2019-10-20 18:01] LABS: Bilirubin,Urine Negative (Negative); Blood,Urine Negative (Negative); Clarity,Urine Clear (Clear); Glucose,Urine (UA) Normal (Normal); Ketones,Urine Negative (Negative); Leukocyte Esterase,Urine Negative (Negative); Nitrite,Urine Negative (Negative); Protein,Urine Negative (Neg-Trace); Urobilinogen,Urine Normal (Normal)
[2019-10-20 18:06] LABS: Color,Urine Light Yellow (Yellow)
[2019-10-20 18:15] LABS: Basophils # 0.1 K/mcL (0.0-0.2); Basophils % 0.9 %; Eosinophils # 0.5 K/mcL (0.0-0.6); Eosinophils % 6.4 %; Hematocrit 32.1 % (35.3-44.9); Hemoglobin 9.9 g/dL (11.5-15.4); Lymphocytes % 13.5 %; Mean Corpuscular HGB Conc 30.8 g/dL (31.6-35.5); Mean Corpuscular Hemoglobin 30.9 pg (28.0-33.3); Mean Corpuscular Volume 100.3 fL (83.0-100.0); Mean Platelet Volume 9.7 fL (9.4-12.4); Monocytes # 0.6 K/mcL (0.0-1.3); Monocytes % 9.1 %; Neutrophils # 4.9 K/mcL (1.6-8.9); Nucleated Red Blood Cells 0.3 /100 WBC (0); Platelet Count 227 K/mcL (140-400); Red Cell Distribution Width 15.9 % (11.5-14.5); Segmented Neutrophils % 69.1 %
[2019-10-20 18:31] LABS: BUN/Creatinine Ratio 23 (6-26); Blood Urea Nitrogen 32 mg/dL (8-23); Calcium 9.2 mg/dL (8.6-10.3); Carbon Dioxide 38 mEq/L (23-29); Chloride 97 mEq/L (98-107); Glucose 109 mg/dL (70-105); Osmolality,Calculated 301 (280-300); Potassium 5.7 mEq/L (3.5-5.1); Sodium 142 mEq/L (136-145); eGFR For African Americans 44 (> 60); eGFR For Non-African Americans 36 (> 60)
[2019-10-20 18:34] LABS: Troponin I < 0.03 ng/mL (< 0.04)
[2019-10-20] MEDS ORDERED: 0.9 % Sodium Chloride 1,000 ML IVC ONE (18:56)
[2019-10-20] MEDS ORDERED: MOM Conc 10 ML UD.LIQ PO PRN (20:24)
[2019-10-20] MEDS ORDERED: D5% in Water 1,000 ML IVC PRN (20:24)
[2019-10-20] MEDS ORDERED: Ondansetron ODT 4 MG TAB.RAPDIS SL PRN (20:24)
[2019-10-20] MEDS ORDERED: *HR* Dextrose 50 % in Water (Vial) 50 ML VIAL IVP PRN (20:24)
[2019-10-20] MEDS ORDERED: Dextrose Gel 15 GM/37.5 ML TUBE PO PRN ×2 (20:24)
[2019-10-20] MEDS ORDERED: Mag Hydrox/Al Hydrox/Simeth 30 ML UDC PO PRN (20:24)
[2019-10-20] MEDS ORDERED: Naloxone 0.4 MG/ML INJ IVP PRN (20:24)
[2019-10-21 00:21] LABS: Calcium 8.7 mg/dL (8.6-10.3); Potassium 5.7 mEq/L (3.5-5.1)
[2019-10-21] MEDS ORDERED: Albuterol 2.5 MG/3 ML NEBULIZER IH PRN (03:19)
[2019-10-21] MEDS ORDERED: Albuterol 2.5 MG/3 ML NEBULIZER ONE (03:25)
[2019-10-21] MEDS ORDERED: Furosemide 20 MG/2 ML VIAL IVP ONE (03:54)
[2019-10-21] MEDS: Insulin LISPRO 300 UNITS/3 ML VIAL SQ SCH ×4 (07:33→21:06)
[2019-10-21] MEDS ORDERED: Loratadine 10 MG TABLET PO PRN (08:40)
[2019-10-21] MEDS: Ascorbic Acid 500 MG TABLET PO SCH (09:35)
[2019-10-21] MEDS: Cyanocobalamin (B-12) 1,000 MCG TABLET PO SCH (09:35)
[2019-10-21] MEDS: Apixaban 5 MG TABLET PO SCH ×2 (09:35→21:16)
[2019-10-21] MEDS: Cholecalciferol (D-3) 1,000 UNIT (25MCG) TABLET PO SCH (09:35)
[2019-10-21] MEDS: Metoprolol XL (24 HR) Succ 25 MG TAB.ER.24H PO SCH (09:35)
[2019-10-21] MEDS: Isosorbide MONOnitrate (24 HR) 30 MG TAB.ER.24H PO SCH (09:35)
[2019-10-21] MEDS: Magnesium Oxide 400 MG TABLET PO SCH (09:35)
[2019-10-21 09:41] LABS: Basophils # 0.1 K/mcL (0.0-0.2); Basophils % 0.9 %; Eosinophils # 0.2 K/mcL (0.0-0.6); Hematocrit 31.4 % (35.3-44.9); Hemoglobin 9.2 g/dL (11.5-15.4); Immature Granulocytes % 1.2 % (0-4); Lymphocytes # 0.7 K/mcL (0.6-4.6); Lymphocytes % 8.6 %; Mean Corpuscular HGB Conc 29.3 g/dL (31.6-35.5); Mean Corpuscular Hemoglobin 30.5 pg (28.0-33.3); Mean Platelet Volume 9.2 fL (9.4-12.4); Monocytes # 0.5 K/mcL (0.0-1.3); Monocytes % 6.5 %; Nucleated Red Blood Cells 0.5 /100 WBC (0); Platelet Count 221 K/mcL (140-400); Red Blood Count 3.02 M/mcL (3.82-4.97); Segmented Neutrophils % 79.8 %; White Blood Count 7.6 K/mcL (4.3-11.1)
[2019-10-21 09:54] LABS: Calcium 8.5 mg/dL (8.6-10.3); Potassium 5.6 mEq/L (3.5-5.1)
[2019-10-21] MEDS: Furosemide 20 MG/2 ML VIAL IVP SCH ×2 (14:58→21:16)
[2019-10-21] MEDS: MethylPREDNISolone 40 MG/ML VIAL IVP SCH (16:36)
[2019-10-22] MEDS: MethylPREDNISolone 40 MG/ML VIAL IVP SCH ×3 (00:56→16:18)
[2019-10-22 05:53] LABS: Basophils % 0.4 %; Eosinophils % 0.2 %; Hematocrit 30.7 % (35.3-44.9); Hemoglobin 9.2 g/dL (11.5-15.4); Immature Granulocytes % 1.7 % (0-4); Lymphocytes # 0.6 K/mcL (0.6-4.6); Lymphocytes % 12.1 %; Mean Corpuscular Hemoglobin 30.9 pg (28.0-33.3); Mean Platelet Volume 9.6 fL (9.4-12.4); Monocytes # 0.1 K/mcL (0.0-1.3); Monocytes % 0.9 %; Neutrophils # 4.5 K/mcL (1.6-8.9); Platelet Count 218 K/mcL (140-400); Red Blood Count 2.98 M/mcL (3.82-4.97); Red Cell Distribution Width 15.7 % (11.5-14.5); Segmented Neutrophils % 84.7 %; White Blood Count 5.3 K/mcL (4.3-11.1)
[2019-10-22 06:35] LABS: Calcium 8.8 mg/dL (8.6-10.3); Potassium 5.9 mEq/L (3.5-5.1)
[2019-10-22 07:05] LABS: Macrocytosis Present (Not Present); Platelet Estimate Normal (Normal)
[2019-10-22] MEDS ORDERED: Albumin Human 5% 12.5 GM/250 ML IV.SOLN IVPB ONE (08:30)
[2019-10-22] MEDS: Isosorbide MONOnitrate (24 HR) 30 MG TAB.ER.24H PO SCH (08:49)
[2019-10-22] MEDS: Insulin LISPRO 300 UNITS/3 ML VIAL SQ SCH ×4 (08:49→21:29)
[2019-10-22] MEDS: Cholecalciferol (D-3) 1,000 UNIT (25MCG) TABLET PO SCH (08:49)
[2019-10-22] MEDS: Apixaban 5 MG TABLET PO SCH ×2 (08:49→21:37)
[2019-10-22] MEDS: Cyanocobalamin (B-12) 1,000 MCG TABLET PO SCH (08:49)
[2019-10-22] MEDS: Magnesium Oxide 400 MG TABLET PO SCH (08:49)
[2019-10-22] MEDS: Ascorbic Acid 500 MG TABLET PO SCH (08:49)
[2019-10-22] MEDS ORDERED: Acetaminophen 325 MG TABLET PO PRN (10:12)
[2019-10-22] MEDS ORDERED: Saline Nasal Spray 44 ML BOTTLE NS PRN (10:19)
[2019-10-22] MEDS: Metoprolol XL (24 HR) Succ 25 MG TAB.ER.24H PO SCH (10:35)
[2019-10-22] MEDS: SODIUM ZIRCONIUM CYCLOSILICATE 5 GM POWD.PACK PO SCH ×3 (10:35→21:37)
[2019-10-22] MEDS: Furosemide 20 MG/2 ML VIAL IVP SCH (13:39)
[2019-10-22] MEDS: Furosemide 20 MG TABLET PO SCH (16:16)
[2019-10-23] MEDS: *HR* Enoxaparin 40 MG/0.4 ML SYRINGE SQ SCH (06:51)
[2019-10-23] MEDS: MethylPREDNISolone 40 MG/ML VIAL IVP SCH ×2 (06:51→16:31)
[2019-10-23 07:15] LABS: Hematocrit 29.6 % (35.3-44.9); Hemoglobin 8.9 g/dL (11.5-15.4); Immature Granulocytes % 0.9 % (0-4); Lymphocytes # 0.5 K/mcL (0.6-4.6); Lymphocytes % 9.7 %; Mean Corpuscular HGB Conc 30.1 g/dL (31.6-35.5); Mean Corpuscular Hemoglobin 30.4 pg (28.0-33.3); Mean Platelet Volume 9.7 fL (9.4-12.4); Monocytes # 0.3 K/mcL (0.0-1.3); Monocytes % 5.7 %; Neutrophils # 4.7 K/mcL (1.6-8.9); Nucleated Red Blood Cells 0.5 /100 WBC (0); Platelet Count 218 K/mcL (140-400); Red Blood Count 2.93 M/mcL (3.82-4.97); Red Cell Distribution Width 15.3 % (11.5-14.5); Segmented Neutrophils % 83.7 %; White Blood Count 5.6 K/mcL (4.3-11.1)
[2019-10-23 07:29] LABS: Potassium 5.2 mEq/L (3.5-5.1)
[2019-10-23] MEDS: Magnesium Oxide 400 MG TABLET PO SCH (08:09)
[2019-10-23] MEDS: Cholecalciferol (D-3) 1,000 UNIT (25MCG) TABLET PO SCH (08:09)
[2019-10-23] MEDS: Cyanocobalamin (B-12) 1,000 MCG TABLET PO SCH (08:09)
[2019-10-23] MEDS: Furosemide 20 MG TABLET PO SCH ×2 (08:09→16:31)
[2019-10-23] MEDS: Metoprolol XL (24 HR) Succ 25 MG TAB.ER.24H PO SCH (08:09)
[2019-10-23] MEDS: Ascorbic Acid 500 MG TABLET PO SCH (08:09)
[2019-10-23] MEDS: Apixaban 5 MG TABLET PO SCH ×2 (08:09→20:45)
[2019-10-23] MEDS: Isosorbide MONOnitrate (24 HR) 30 MG TAB.ER.24H PO SCH (08:09)
[2019-10-23] MEDS: Insulin LISPRO 300 UNITS/3 ML VIAL SQ SCH ×4 (08:10→20:45)
[2019-10-23] MEDS: SODIUM ZIRCONIUM CYCLOSILICATE 5 GM POWD.PACK PO SCH ×3 (08:35→20:45)
[2019-10-24] MEDS: MethylPREDNISolone 40 MG/ML VIAL IVP SCH (06:14)
[2019-10-24] MEDS: *HR* Enoxaparin 40 MG/0.4 ML SYRINGE SQ SCH (06:14)
[2019-10-24 06:50] VITALS: BP 134/85
[2019-10-24 08:03] LABS: Calcium 8.9 mg/dL (8.6-10.3); Potassium 4.1 mEq/L (3.5-5.1)
[2019-10-24] MEDS ORDERED: SODIUM ZIRCONIUM CYCLOSILICATE 5 GM POWD.PACK PO SCH (09:00)
[2019-10-24] MEDS: Metoprolol XL (24 HR) Succ 25 MG TAB.ER.24H PO SCH (09:37)
[2019-10-24] MEDS: Insulin LISPRO 300 UNITS/3 ML VIAL SQ SCH ×2 (09:37→11:37)
[2019-10-24] MEDS: Cholecalciferol (D-3) 1,000 UNIT (25MCG) TABLET PO SCH (09:37)
[2019-10-24] MEDS: Ascorbic Acid 500 MG TABLET PO SCH (09:38)
[2019-10-24] MEDS: Isosorbide MONOnitrate (24 HR) 30 MG TAB.ER.24H PO SCH (09:38)
[2019-10-24] MEDS: Magnesium Oxide 400 MG TABLET PO SCH (09:38)
[2019-10-24] MEDS: Furosemide 20 MG TABLET PO SCH (09:38)
[2019-10-24] MEDS: Cyanocobalamin (B-12) 1,000 MCG TABLET PO SCH (09:38)
[2019-10-24] MEDS: Apixaban 5 MG TABLET PO SCH (09:38)
[2019-10-24 10:36] LABS: Bilirubin,Urine Negative (Negative); Blood,Urine Large (Negative); Clarity,Urine Cloudy (Clear); Color,Urine Yellow (Yellow); Glucose,Urine (UA) 100 mg/dL (Normal); Ketones,Urine Negative (Negative); Leukocyte Esterase,Urine Large (Negative); Nitrite,Urine Positive (Negative); Protein,Urine 100 mg/dL (Neg-Trace); Urobilinogen,Urine Normal (Normal)
[2019-10-24 10:43] LABS: Bacteria,Urine Many per hpf (None-Few); RBC,Urine 30-50 per hpf (0-3); Squamous Epithelial Cell,Urine Moderate per hpf (None-Few); WBC,Urine 50-100 per hpf (0-3)
== END 2019-10-24 11:55 | disposition other institution (70) | DRG 682 ==
LOC: INPPIK 17:41 → EMEROOPIK 17:41 → INPPIK 20:20
PROVIDERS: ADMIT Family Medicine; ATTEND Family Medicine

== ENCOUNTER 2019-10-24 11:11 | Inpatient (IN) ==
[2019-10-24] MEDS ORDERED: Loratadine 10 MG TABLET PO PRN (13:40)
[2019-10-24] MEDS ORDERED: Albuterol 2.5 MG/3 ML NEBULIZER IH PRN (16:00)
[2019-10-24] MEDS ORDERED: D5% in Water 1,000 ML IVC PRN (17:44)
[2019-10-24] MEDS ORDERED: *HR* Dextrose 50 % in Water (Vial) 50 ML VIAL IVP PRN (17:44)
[2019-10-24] MEDS ORDERED: Dextrose Gel 15 GM/37.5 ML TUBE PO PRN ×2 (17:44)
[2019-10-24] MEDS: Apixaban 5 MG TABLET PO SCH (20:41)
[2019-10-24] MEDS: Insulin LISPRO 300 UNITS/3 ML VIAL SQ SCH (20:41)
[2019-10-25 07:51] LABS: Basophils % 0.1 %; Eosinophils # 0.1 K/mcL (0.0-0.6); Hematocrit 30.6 % (35.3-44.9); Hemoglobin 9.6 g/dL (11.5-15.4); Immature Granulocytes % 1.3 % (0-4); Lymphocytes # 0.7 K/mcL (0.6-4.6); Lymphocytes % 9.2 %; Mean Corpuscular HGB Conc 31.4 g/dL (31.6-35.5); Mean Corpuscular Hemoglobin 30.9 pg (28.0-33.3); Mean Corpuscular Volume 98.4 fL (83.0-100.0); Mean Platelet Volume 9.6 fL (9.4-12.4); Monocytes # 0.6 K/mcL (0.0-1.3); Monocytes % 8.4 %; Neutrophils # 6.1 K/mcL (1.6-8.9); Platelet Count 227 K/mcL (140-400); Red Blood Count 3.11 M/mcL (3.82-4.97); Red Cell Distribution Width 15.5 % (11.5-14.5); White Blood Count 7.6 K/mcL (4.3-11.1)
[2019-10-25 08:06] LABS: BUN/Creatinine Ratio 38 (6-26); Blood Urea Nitrogen 34 mg/dL (8-23); Calcium 8.8 mg/dL (8.6-10.3); Carbon Dioxide 38 mEq/L (23-29); Chloride 97 mEq/L (98-107); Glucose 134 mg/dL (70-105); Osmolality,Calculated 304 (280-300); Potassium 3.6 mEq/L (3.5-5.1); Sodium 142 mEq/L (136-145); eGFR For African Americans > 60 (> 60); eGFR For Non-African Americans > 60 (> 60)
[2019-10-25] MEDS: Isosorbide MONOnitrate (24 HR) 30 MG TAB.ER.24H PO SCH (08:19)
[2019-10-25] MEDS: Insulin LISPRO 300 UNITS/3 ML VIAL SQ SCH ×4 (08:19→20:18)
[2019-10-25] MEDS: Cholecalciferol (D-3) 1,000 UNIT (25MCG) TABLET PO SCH (08:20)
[2019-10-25] MEDS: Furosemide 40 MG TABLET PO SCH (08:20)
[2019-10-25] MEDS: predniSONE 20 MG TABLET PO SCH (08:20)
[2019-10-25] MEDS: allopurinoL 100 MG TABLET PO SCH (08:20)
[2019-10-25] MEDS: Metoprolol XL (24 HR) Succ 25 MG TAB.ER.24H PO SCH (08:20)
[2019-10-25] MEDS: *HR* GlipiZIDE XL (24 HR) 2.5 MG TABLET PO SCH (08:20)
[2019-10-25] MEDS: Apixaban 5 MG TABLET PO SCH ×2 (08:20→20:18)
[2019-10-25] MEDS: Magnesium Oxide 400 MG TABLET PO SCH (08:20)
[2019-10-25] MEDS: Ascorbic Acid 500 MG TABLET PO SCH (08:20)
[2019-10-25] MEDS: *HR* SitaGLIPtin 25 MG TABLET PO SCH (08:20)
[2019-10-25] MEDS: *HR* Metformin 500 MG TABLET PO SCH (08:20)
[2019-10-25] MEDS: Cyanocobalamin (B-12) 1,000 MCG TABLET PO SCH (08:20)
[2019-10-25] MEDS ORDERED: SODIUM ZIRCONIUM CYCLOSILICATE 5 GM POWD.PACK PO SCH (09:00)
[2019-10-25] MEDS: Budesonide/Formoterol 160/4.5 1 PUFF INH IH SCH (21:55)
[2019-10-26] MEDS: Insulin LISPRO 300 UNITS/3 ML VIAL SQ SCH ×4 (07:37→21:30)
[2019-10-26] MEDS: Isosorbide MONOnitrate (24 HR) 30 MG TAB.ER.24H PO SCH (07:56)
[2019-10-26] MEDS: Ascorbic Acid 500 MG TABLET PO SCH (07:56)
[2019-10-26] MEDS: *HR* GlipiZIDE XL (24 HR) 2.5 MG TABLET PO SCH (07:56)
[2019-10-26] MEDS: Apixaban 5 MG TABLET PO SCH ×2 (07:56→21:30)
[2019-10-26] MEDS: Cyanocobalamin (B-12) 1,000 MCG TABLET PO SCH (07:56)
[2019-10-26] MEDS: *HR* SitaGLIPtin 25 MG TABLET PO SCH (07:56)
[2019-10-26] MEDS: Cholecalciferol (D-3) 1,000 UNIT (25MCG) TABLET PO SCH (07:57)
[2019-10-26] MEDS: allopurinoL 100 MG TABLET PO SCH (07:57)
[2019-10-26] MEDS: *HR* Metformin 500 MG TABLET PO SCH (07:57)
[2019-10-26] MEDS: Furosemide 40 MG TABLET PO SCH (07:57)
[2019-10-26] MEDS: Magnesium Oxide 400 MG TABLET PO SCH (07:57)
[2019-10-26] MEDS: predniSONE 20 MG TABLET PO SCH (07:57)
[2019-10-26] MEDS: Metoprolol XL (24 HR) Succ 25 MG TAB.ER.24H PO SCH (07:57)
[2019-10-26] MEDS: lisinopriL 20 MG TABLET PO SCH (07:57)
[2019-10-26] MEDS: Budesonide/Formoterol 160/4.5 1 PUFF INH IH SCH ×2 (10:22→20:37)
[2019-10-27] MEDS: predniSONE 20 MG TABLET PO SCH (08:07)
[2019-10-27] MEDS: Metoprolol XL (24 HR) Succ 25 MG TAB.ER.24H PO SCH (08:07)
[2019-10-27] MEDS: *HR* SitaGLIPtin 25 MG TABLET PO SCH (08:08)
[2019-10-27] MEDS: Isosorbide MONOnitrate (24 HR) 30 MG TAB.ER.24H PO SCH (08:08)
[2019-10-27] MEDS: Ascorbic Acid 500 MG TABLET PO SCH (08:08)
[2019-10-27] MEDS: Cyanocobalamin (B-12) 1,000 MCG TABLET PO SCH (08:08)
[2019-10-27] MEDS: Furosemide 40 MG TABLET PO SCH (08:08)
[2019-10-27] MEDS: allopurinoL 100 MG TABLET PO SCH (08:08)
[2019-10-27] MEDS: *HR* Metformin 500 MG TABLET PO SCH (08:08)
[2019-10-27] MEDS: Apixaban 5 MG TABLET PO SCH ×2 (08:08→20:41)
[2019-10-27] MEDS: *HR* GlipiZIDE XL (24 HR) 2.5 MG TABLET PO SCH (08:08)
[2019-10-27] MEDS: lisinopriL 20 MG TABLET PO SCH (08:08)
[2019-10-27] MEDS: Cholecalciferol (D-3) 1,000 UNIT (25MCG) TABLET PO SCH (08:09)
[2019-10-27] MEDS: Magnesium Oxide 400 MG TABLET PO SCH (08:09)
[2019-10-27] MEDS: Insulin LISPRO 300 UNITS/3 ML VIAL SQ SCH ×4 (08:17→20:41)
[2019-10-27] MEDS: Budesonide/Formoterol 160/4.5 1 PUFF INH IH SCH ×2 (10:31→21:21)
[2019-10-28] MEDS: Insulin LISPRO 300 UNITS/3 ML VIAL SQ SCH ×4 (07:40→20:31)
[2019-10-28] MEDS: Furosemide 40 MG TABLET PO SCH (08:17)
[2019-10-28] MEDS: Cholecalciferol (D-3) 1,000 UNIT (25MCG) TABLET PO SCH (08:17)
[2019-10-28] MEDS: *HR* GlipiZIDE XL (24 HR) 2.5 MG TABLET PO SCH (08:17)
[2019-10-28] MEDS: *HR* SitaGLIPtin 25 MG TABLET PO SCH (08:17)
[2019-10-28] MEDS: Magnesium Oxide 400 MG TABLET PO SCH (08:17)
[2019-10-28] MEDS: Cyanocobalamin (B-12) 1,000 MCG TABLET PO SCH (08:17)
[2019-10-28] MEDS: allopurinoL 100 MG TABLET PO SCH (08:17)
[2019-10-28] MEDS: Isosorbide MONOnitrate (24 HR) 30 MG TAB.ER.24H PO SCH (08:17)
[2019-10-28] MEDS: lisinopriL 20 MG TABLET PO SCH (08:18)
[2019-10-28] MEDS: *HR* Metformin 500 MG TABLET PO SCH (08:18)
[2019-10-28] MEDS: predniSONE 20 MG TABLET PO SCH (08:18)
[2019-10-28] MEDS: Apixaban 5 MG TABLET PO SCH ×2 (08:18→20:30)
[2019-10-28] MEDS: Metoprolol XL (24 HR) Succ 25 MG TAB.ER.24H PO SCH (08:18)
[2019-10-28] MEDS: Ascorbic Acid 500 MG TABLET PO SCH (08:18)
[2019-10-28] MEDS: Budesonide/Formoterol 160/4.5 1 PUFF INH IH SCH ×2 (10:32→21:14)
[2019-10-28] MEDS: Nystatin POWDER 30 GM BOTTLE TP SCH ×2 (13:21→20:31)
[2019-10-29 05:34] LABS: Hematocrit 31.3 % (35.3-44.9); Hemoglobin 9.8 g/dL (11.5-15.4); Mean Corpuscular HGB Conc 31.3 g/dL (31.6-35.5); Mean Corpuscular Hemoglobin 30.6 pg (28.0-33.3); Mean Corpuscular Volume 97.8 fL (83.0-100.0); Mean Platelet Volume 10.3 fL (9.4-12.4); Platelet Count 214 K/mcL (140-400); Red Cell Distribution Width 15.9 % (11.5-14.5); White Blood Count 7.3 K/mcL (4.3-11.1)
[2019-10-29 07:51] LABS: Carbon Dioxide 43 mEq/L (23-29)
[2019-10-29 07:52] LABS: BUN/Creatinine Ratio 25 (6-26); Blood Urea Nitrogen 21 mg/dL (8-23); Calcium 8.5 mg/dL (8.6-10.3); Chloride 93 mEq/L (98-107); Glucose 90 mg/dL (70-105); Osmolality,Calculated 303 (280-300); Potassium 3.2 mEq/L (3.5-5.1); Sodium 145 mEq/L (136-145); eGFR For African Americans > 60 (> 60); eGFR For Non-African Americans > 60 (> 60)
[2019-10-29] MEDS: Budesonide/Formoterol 160/4.5 1 PUFF INH IH SCH ×2 (08:23→21:26)
[2019-10-29] MEDS: Magnesium Oxide 400 MG TABLET PO SCH (08:25)
[2019-10-29] MEDS: Apixaban 5 MG TABLET PO SCH ×2 (08:25→20:32)
[2019-10-29] MEDS: *HR* SitaGLIPtin 25 MG TABLET PO SCH (08:25)
[2019-10-29] MEDS: *HR* Metformin 500 MG TABLET PO SCH (08:25)
[2019-10-29] MEDS: *HR* GlipiZIDE XL (24 HR) 2.5 MG TABLET PO SCH (08:25)
[2019-10-29] MEDS: lisinopriL 20 MG TABLET PO SCH (08:25)
[2019-10-29] MEDS: Isosorbide MONOnitrate (24 HR) 30 MG TAB.ER.24H PO SCH (08:25)
[2019-10-29] MEDS: Ascorbic Acid 500 MG TABLET PO SCH (08:25)
[2019-10-29] MEDS: Furosemide 40 MG TABLET PO SCH (08:25)
[2019-10-29] MEDS: Metoprolol XL (24 HR) Succ 25 MG TAB.ER.24H PO SCH (08:25)
[2019-10-29] MEDS: Cyanocobalamin (B-12) 1,000 MCG TABLET PO SCH (08:25)
[2019-10-29] MEDS: predniSONE 20 MG TABLET PO SCH (08:25)
[2019-10-29] MEDS: allopurinoL 100 MG TABLET PO SCH (08:26)
[2019-10-29] MEDS: Nystatin POWDER 30 GM BOTTLE TP SCH ×2 (08:26→20:33)
[2019-10-29] MEDS: Cholecalciferol (D-3) 1,000 UNIT (25MCG) TABLET PO SCH (08:26)
[2019-10-29] MEDS: Insulin LISPRO 300 UNITS/3 ML VIAL SQ SCH ×4 (08:27→20:33)
[2019-10-29] MEDS ORDERED: Potassium Chloride Elixir 20 MEQ/15 ML UDC PO ONE (11:58)
[2019-10-29] MEDS: acetaZOLAMIDE 250 MG TABLET PO SCH (20:33)
[2019-10-30 06:58] VITALS: BP 126/67
[2019-10-30] MEDS: Insulin LISPRO 300 UNITS/3 ML VIAL SQ SCH ×3 (07:58→16:49)
[2019-10-30] MEDS: Apixaban 5 MG TABLET PO SCH (08:01)
[2019-10-30] MEDS: lisinopriL 20 MG TABLET PO SCH (08:01)
[2019-10-30] MEDS: *HR* Metformin 500 MG TABLET PO SCH (08:01)
[2019-10-30] MEDS: Magnesium Oxide 400 MG TABLET PO SCH (08:01)
[2019-10-30] MEDS: Cyanocobalamin (B-12) 1,000 MCG TABLET PO SCH (08:01)
[2019-10-30] MEDS: predniSONE 20 MG TABLET PO SCH (08:01)
[2019-10-30] MEDS: Ascorbic Acid 500 MG TABLET PO SCH (08:01)
[2019-10-30] MEDS: Cholecalciferol (D-3) 1,000 UNIT (25MCG) TABLET PO SCH (08:01)
[2019-10-30] MEDS: *HR* SitaGLIPtin 25 MG TABLET PO SCH (08:01)
[2019-10-30] MEDS: allopurinoL 100 MG TABLET PO SCH (08:01)
[2019-10-30] MEDS: *HR* GlipiZIDE XL (24 HR) 2.5 MG TABLET PO SCH (08:02)
[2019-10-30] MEDS: Metoprolol XL (24 HR) Succ 25 MG TAB.ER.24H PO SCH (08:02)
[2019-10-30] MEDS: Nystatin POWDER 30 GM BOTTLE TP SCH (08:02)
[2019-10-30] MEDS: acetaZOLAMIDE 250 MG TABLET PO SCH (08:02)
[2019-10-30] MEDS: Isosorbide MONOnitrate (24 HR) 30 MG TAB.ER.24H PO SCH (08:02)
[2019-10-30] MEDS: Budesonide/Formoterol 160/4.5 1 PUFF INH IH SCH (08:49)
[2019-10-30 09:25] LABS: BUN/Creatinine Ratio 21 (6-26); Blood Urea Nitrogen 20 mg/dL (8-23); Calcium 8.7 mg/dL (8.6-10.3); Carbon Dioxide 38 mEq/L (23-29); Chloride 94 mEq/L (98-107); Glucose 121 mg/dL (70-105); Osmolality,Calculated 298 (280-300); Potassium 3.1 mEq/L (3.5-5.1); Sodium 142 mEq/L (136-145); eGFR For African Americans > 60 (> 60); eGFR For Non-African Americans 55 (> 60)
== END 2019-10-30 19:12 | DRG 190 ==
LOC: INPPIK 11:58
PROVIDERS: ADMIT Family Medicine; ATTEND Family Medicine